=== PATIENT | female | born 1960 | race Caucasian/White ===

== ENCOUNTER 2017-06-16 22:21 | Emergency (ER) | payer MEDICARE, OTHER ==
[2017-06-16 23:08] LABS: Hematocrit 37.1 % (36.0-47.0); Mean Platelet Volume 10.4 fL (7.4-10.4); Red Blood Cell (RBC) Count 3.51 mill/uL (4.20-5.40); White Blood Cell (WBC) Count 5.3 thou/uL (4.8-10.8)
[2017-06-16 23:26] LABS: Troponin I 0.011 ng/mL (< 0.028)
[2017-06-16 23:32] LABS: Band 1 % (5-11); Basophilic Stippling SLIGHT = 1-2 cells (100X) (None Seen); Macrocytosis SLIGHT = 6-15 cells (100X) (0-5/hpf); Neutrophil 49 % (42-75)
[2017-06-16 23:52] LABS: ALT (SGPT) 7 U/L (8-55); AST (SGOT) 9 U/L (5-34); Alkaline Phosphatase 116 U/L (40-150); Anion Gap 15 mmol/L (10-20); BUN (Urea Nitrogen) 23 mg/dL (9.8-20.1); Bilirubin, Total 0.6 mg/dL (0.2-1.2); CK (CPK) 27 U/L (29-168); Calc. Creatinine Clearance 0 mL/min (70-130); Carbon Dioxide 27 mmol/L (22-29); Chloride 90 mmol/L (98-107); Estimated GFR-MDRD 11; Globulin 3.6 g/dL (2.4-3.5); Lipase Less than 4 U/L (8-78); Protein, Total 7.6 g/dL (6.0-8.3)
--- NOTE | 2017-06-16 23:57 | RAD ---
PORTABLE AP CHEST X-RAY 06/16/17 HISTORY: Mid sternal chest pain that began at 1800 hours and resolved with nitroglycerin. Pain returned again at 2100 hours. COMPARISON: 06/08/17. Tunneled right internal jugular vein hemodialysis catheter and single lead left subclavian AICD cornel ce remain in place. Cardiac silhouette is enlarged. There is increased interstitial opacities bilate rally, which may be related to pulmonary edema or infectious process. There is subsegmental atelecta sis seen in the mid lung zones bilaterally. A tiny left pleural effusion cannot be entirely excluded . Pulmonary vasculature is mildly increased. IMPRESSION: Cardiomegaly with findings suggestive of mild CHF and pulmonary edema. POS: [facility]
[2017-06-17] MEDS ORDERED: Furosemide 20 MG/2 ML VIAL ONE (01:03)
[2017-06-17 01:22] LABS: Troponin I 0.019 ng/mL (< 0.028)
== END 2017-06-17 04:01 | disposition home or self-care (01) ==
LOC: ERS 22:21
DX: I50.9 Heart failure, unspecified (principal); E11.22 Type 2 diabetes mellitus with diabetic chronic kidney disease; E78.5 Hyperlipidemia, unspecified; N18.6 End stage renal disease; I48.91 Unspecified atrial fibrillation; Z87.891 Personal history of nicotine dependence; Z79.82 Long term (current) use of aspirin; Z79.4 Long term (current) use of insulin; Z79.891 Long term (current) use of opiate analgesic; Z79.899 Other long term (current) drug therapy
CPT/HCPCS: 36415; 71010; 80053; 82550; 82553; 83690; 83880; 84484; 85025; 93005; 94760; 96374; J1940

== ENCOUNTER 2017-08-16 09:45 | Inpatient (IN) | payer MEDICARE, OTHER ==
[2017-08-16 10:21] LABS: Anion Gap 1 mmol/L (-14-95); Critical Call POC Critical Value; Lactate 0.63 mmol/L (0.50-2.20); POC Est. GFR-MDRD-African-Amer 7; POC Estimated GFR-MDRD 6; T. Carbon Dioxide 32.6 mmol/L (1.0-85.0); pH (Venous) 7.169 (7.35-7.45)
[2017-08-16 10:23] LABS: Oxyhemoglobin 91.3 % (94.0-97.0); Sodium 129 mmol/L (135-148)
[2017-08-16 10:25] LABS: Modified Allen's Test POSITIVE; Vent NO
[2017-08-16 10:26] LABS: Mode 3L NC
[2017-08-16 10:46] LABS: #Basophils 0.1 thou/uL (0.0-0.2); #Eosinphils 0.1 thou/uL (0.0-0.7); #Lymphocytes 0.5 thou/uL (1.20-3.40); #Monocytes 0.6 thou/uL (0.11-0.59); %Basophils 0.7 % (0.0-1.0); %Eosinophils 0.7 % (0.0-10.0); %Lymphocytes 5.9 % (21.0-51.0); %Monocytes 7.3 % (0.0-10.0); Hematocrit 38.6 % (36.0-47.0); Mean Platelet Volume 9.8 fL (7.4-10.4); Red Blood Cell (RBC) Count 3.52 mill/uL (4.20-5.40); White Blood Cell (WBC) Count 8.2 thou/uL (4.8-10.8)
[2017-08-16] MEDS ORDERED: Calcium Chloride 1 GM/10 ML Abboject SYRINGE ONE (10:47)
[2017-08-16] MEDS ORDERED: Dextrose 50% Abboject 50 ML SYRINGE ONE (10:47)
[2017-08-16] MEDS ORDERED: Sodium Bicarb 50 MEQ/50 ML Abboject 8.4% SYRINGE ONE (10:47)
[2017-08-16] MEDS ORDERED: Insulin Regular 300 UNITS/3 ML VIAL ONE (10:48)
[2017-08-16 10:53] LABS: Troponin I Less than 0.010 ng/mL (< 0.028)
--- NOTE | 2017-08-16 10:53 | RAD ---
PORTABLE CHEST: History: Dyspnea. Comparison: 08-04-17 FINDINGS/IMPRESSION: Cardiomegaly with vascular congestion. There is evidence of interstitial edema. There is abnormal den sity in the right suprahilar region today which may be positional. Suggest short term follow up. Upri ght PA and lateral views would be helpful if patient can tolerate. POS: [facility]
[2017-08-16 11:02] LABS: Anisocytosis SLIGHT = 6-15 cells (100X) (0-5/hpf); Blister Cells SLIGHT = 2-5 cells (100X) (0-1/hpf); Macrocytosis SLIGHT = 6-15 cells (100X) (0-5/hpf); Polychromasia MODERATE = 3-4 cells (100X) (0-2/hpf)
[2017-08-16 11:47] LABS: Oxyhemoglobin 91.8 % (94.0-97.0); Sodium 130 mmol/L (135-148)
[2017-08-16 11:49] LABS: Modified Allen's Test POSITIVE; Vent NO
[2017-08-16] MEDS ORDERED: Rocuronium Bromide 50 MG/5 ML VIAL ONE (12:03)
[2017-08-16] MEDS ORDERED: Propofol 1,000 MG/100 ML VIAL IV ONE (12:19)
[2017-08-16 12:53] LABS: Chloride 93 mmol/L (98-107)
[2017-08-16 12:54] LABS: Calcium 9.2 mg/dL (7.8-10.44)
[2017-08-16 12:56] LABS: Anion Gap 17 mmol/L (10-20); Carbon Dioxide 22 mmol/L (22-29)
[2017-08-16 12:57] LABS: Calc. Creatinine Clearance 0 mL/min (70-130); Estimated GFR-MDRD 7
[2017-08-16 12:58] LABS: BUN (Urea Nitrogen) 59 mg/dL (9.8-20.1)
[2017-08-16] MEDS ORDERED: cloNIDine 0.1 MG TAB PO PRN ×2 (13:15→17:39)
[2017-08-16] MEDS ORDERED: Acetaminophen 325 MG TAB PO PRN (13:15)
[2017-08-16] MEDS ORDERED: Sedation Protocol FS ONE (13:15)
[2017-08-16] MEDS ORDERED: hydrALAZINE 20 MG/ML VIAL SLOW IVP PRN (13:15)
[2017-08-16] MEDS ORDERED: Nitroglycerin 0.4 MG TAB (25 Tab Bottle) PO PRN (13:15)
[2017-08-16] MEDS ORDERED: Acetaminophen 650 MG Suppository PR PRN (13:15)
[2017-08-16] MEDS ORDERED: Insulin Regular 300 UNITS/3 ML VIAL SC PRN (13:15)
[2017-08-16] MEDS ORDERED: Senokot 8.6 MG TAB PO PRN (13:15)
[2017-08-16] MEDS ORDERED: Calcium Carbonate 500 MG ChewTAB PO PRN (13:15)
[2017-08-16] MEDS ORDERED: Dextrose 5% in Water 1,000 ML IV PRN (13:15)
[2017-08-16] MEDS ORDERED: Dextrose 50% Abboject 50 ML SYRINGE SLOW IVP PRN (13:15)
[2017-08-16] MEDS ORDERED: Ondansetron ODT 4 MG TAB PO PRN (13:15)
[2017-08-16] MEDS ORDERED: Ondansetron HCl/PF 4 MG/2 ML Vial IVP PRN (13:15)
[2017-08-16] MEDS ORDERED: Lorazepam 2 MG/ML VIAL SLOW IVP PRN (13:25)
[2017-08-16] MEDS ORDERED: Propofol 1,000 MG/100 ML VIAL IV PRN (13:25)
[2017-08-16] MEDS ORDERED: Fentanyl 20 MCG/ML 250 ML IVPB SCH (13:25)
--- NOTE | 2017-08-16 13:26 | RAD ---
PORTABLE AP CHEST: Date: 08-16-17 History: Intubated. Comparison: 08-16-17 FINDINGS: Single led left subclavian AICD device remains in place. Nasogastric tube is noted in place with cour ses into the left upper caudate, the tip of which is not visualized. Endotracheal tube is noted in pl kel with the tip overlying T4-5 level and above the level of the trisha. Cardiac silhouette remains e nlarged. Pulmonary vasculature does appear mildly increased. There is minimal linear scarring versus atelectasis in the mid lung zones bilaterally. No pleural effusion is seen. No other interval change. IMPRESSION: 1. Cardiomegaly with mild pulmonary vascular congestion. Correlation for mild CHF is recommended. 2. Endotracheal tube noted in place above the level of the trisha. The nasogastric tube is also noted in place, the tip is not imaged. POS: [facility]
[2017-08-16] MEDS ORDERED: Morphine PF 1 MG/ML SYR IVP PRN (13:30)
[2017-08-16 13:38] VITALS: BMI 37.0
[2017-08-16] MEDS ORDERED: Labetalol HCl 100 MG/20 ML VIAL SLOW IVP PRN (15:03)
--- NOTE | 2017-08-16 15:48 | PRG ---
DATE OF SERVICE: 08/16/2017 SERVICE: Pulmonary Medicine. REASON FOR CONSULTATION: Respiratory failure. HISTORY OF PRESENT ILLNESS: The patient is a 57-year-old female. He has got multiple comor bidities associated with advanced type 2 diabetes mellitus. She has end-stage renal disease. She merritt s been in and out of hospital recently because she is refusing her dialysis. That being said, in her time of need, she has increasing respiratory distress or failure or chest discomfort and was brought to the emergency department. On this occasion, in the Emergency Department, she was in hypoxic resp iratory failure and little obtunded. ABG demonstrated respiratory acidosis. She was placed on BiPAP , but failed this and subsequently was intubated. She was stuck in the ICU. She cannot provide any additional elements of the history. Currently, she is not requiring any sedation and she is not foll owing any commands. PAST MEDICAL HISTORY: 1. End-stage renal disease, on hemodialysis, noncompliant. 2. Multiple admissions secondary to volume overload. 3. Chronic hypoxic respiratory failure. 4. COPD, possible. 5. Morbid obesity. 6. Obesity hypoventilation syndrome. 7. Obstructive sleep apnea. 8. Type 2 diabetes mellitus. 9. Chronic systolic and diastolic heart failure. 10. Paroxysmal atrial fibrillation. 11. Anemia of chronic kidney disease. 12. Hypothyroidism. 13. Hypertension. 14. Dyslipidemia. 15. Gastroesophageal reflux disease. 16. History of CVA with residual left-sided weakness. 17. Seizure disorder. PAST SURGICAL HISTORY: 1. AICD/pacemaker placement. 2. AV fistula, nonfunctioning. 3. Tunneled hemodialysis catheter in the right IJ. 4. Tonsillectomy. 5. Hysterectomy. 6. Colonoscopy with polypectomy. 6. Hernia repair. ALLERGIES: No known drug allergies. MEDICATIONS: List of her inpatient medications were reviewed. No specific updates were made at this time. FAMILY HISTORY: Noncontributory. SOCIAL HISTORY: The patient is . She lives in of [facility] as a long- term resident. She denies any alcohol, tobacco or illicit drug use. REVIEW OF SYSTEMS: Cannot be obtained as the patient is currently intubated and encephalopathic. PHYSICAL EXAMINATION: VITAL SIGNS: Afebrile, pulse 73, blood pressure 215/85, respirations 71, saturation 99% on 21% FiO2 and a PEEP of 5. HEENT: Normocephalic, atraumatic. Sclerae are white, conjunctivae pink. Oral mucosa is moist witho ut lesions. LUNGS: Decent air entry. Crackles are present dependently. HEART: Normal rate, regular. ABDOMEN: Soft, nontender, nondistended. Bowel sounds positive. MUSCULOSKELETAL: No cyanosis or clubbing. There is diffuse pitting, which is roughly 2+ throughout including bilateral upper and lower extremities. GENITOURINARY: No Begum. NEUROLOGIC: Grossly nonfocal. LABORATORY DATA: WBC 8.2, hemoglobin 12.3, platelets 183,000. INR 1.1. PH 7.16, pCO2 91, pO2 96. Potassium 6.7, which is improved to 5.7 after dialysis. Sodium 126. Creatinine 6.29 and gently down trending, BUN 59. Cardiac enzymes x1 is negative. CK falls within normal limits. Recent urine cult ure grew Klebsiella which was pansensitive. IMAGING: Chest x-ray demonstrates prominence of the interstitium, prominence of the pulmonary vascul ature. There is widening to the trisha angle. Some B lines are present. There is likely some fluid in the fissure of the lung. Otherwise, there is no obvious lobar consolidating pattern present. En dotracheal tube is in good position and terminates roughly 2-3 cm above the trisha. Catheter pacemak ers identified. Enteric catheter actually courses below the level of the diaphragm. ASSESSMENT: 1. Acute hypoxic and hypercapnic respiratory failure. 2. Metabolic encephalopathy. 3. End-stage renal disease, demonstrating noncompliance with therapy. PLAN: The patient is already on dialysis. Palliative Care consultation will be placed. Now, she is on mechanical ventilation, repeat ABG will be performed to make certain that her acidosis is improvi ng slightly. We will give the patient time we monitor for evidence of end organ damage associated wi th her elevated blood pressure. Certainly, if she fails to wake up over the next 24-48 hours, imagin g of the brain will be considered. I will focus on getting good control of her blood pressure. If s he meets criteria after dialysis and she is awake and alert and cooperative, extubation will be consi dered. Pulmonary Critical Care will continue to follow for the time being. Critical care time: 30 minutes.
[2017-08-16] MEDS ORDERED: Nitroglycerin 0.4 MG TAB (25 Tab Bottle) SL PRN (17:32)
--- NOTE | 2017-08-16 18:16 | HP ---
DATE OF ADMISSION: 08/16/2017 PRIMARY CARE PHYSICIAN: Simona Barnard D.O. at [facility]. CODE STATUS: FULL CODE. SURROGATE DECISION MAKER: To be confirmed with the family. There is no family at the bedside. CHIEF COMPLAINT: Shortness of breath and low oxygen saturation. HISTORY OF PRESENT ILLNESS: The patient is a 57-year-old female, currently residing at [facility], was brought in to the hospital with shortness of breath. The patient h as a long history of end-stage renal disease on hemodialysis and noncompliance. Patient has been con sistently refusing dialysis. This morning, the patient was found to have shortness of breath along w ith low oxygen saturation. She follows Dr. Jacobson normally. She was placed on oxygen and was brought t o the emergency room. At this time, the patient is intubated on mechanical ventilation. No history obtained from the patie nt due to this reason. She was initially placed on noninvasive positive pressure ventilation without much success. Initial vital signs on ER arrival showed a pulse rate of 94, respirations 17, blood p ressure of 143/78 with O2 saturation of 100% on noninvasive positive pressure ventilation. Initial b lood gases showed pH of 7.15 with pCO2 88.4, pO2 of 92.2, bicarbonate of 30.2. Initial potassium was 6.7 with creatinine 6.29 with BUN 59. She received insulin D50, sodium bicarbonate and calcium chlo ride in the emergency room. Chest x-ray showed pulmonary vascular congestion. EKG showed sinus rhyt hm with first degree AV blocks with nonspecific ST-T wave changes. She is currently undergoing emerg ent hemodialysis. PAST MEDICAL HISTORY: 1. End-stage renal disease on hemodialysis and noncompliance. 2. Multiple hospitalizations for acute hypoxic respiratory failure secondary to volume overload from missed hemodialysis. 3. Chronic hypoxic respiratory failure. 4. Chronic obstructive pulmonary disease. 5. Morbid obesity. 6. Obstructive sleep apnea/hypoventilation syndrome. 7. Diabetes mellitus type 2. 8. Chronic right knee ulcer. 9. Chronic diastolic heart failure with last ejection fraction around 45% range. 10. Paroxysmal atrial fibrillation, not a candidate for anticoagulation per previous notes. 11. Chronic anemia. 12. Hypothyroidism. 13. Hypertension. 14. Dyslipidemia. 15. Gastroesophageal reflux disease. 16. History of cerebrovascular accident with residual left-sided weakness. 17. Seizure disorder. PAST SURGICAL HISTORY: 1. AICD/pacemaker placement. 2. Dialysis access. 3. Tonsillectomy. 4. Hysterectomy. 5. Colonoscopy with polypectomy. 6. Hernia repair. ALLERGIES: No known drug allergies. CURRENT MEDICATIONS: At the [facility] to be verified with the nursing facility. We will try to c ontact the fpc for accurate [facility] medication list. FAMILY HISTORY: Positive for hypertension, diabetes and coronary artery disease in several family me mbers per previous record. SOCIAL HISTORY: As discussed above. No current use of tobacco, alcohol or drug use. REVIEW OF SYSTEMS: Cannot be obtained from the patient due to current cognitive status. PHYSICAL EXAMINATION: VITAL SIGNS: As discussed above. GENERAL: A 57-year-old female, intubated and sedated on mechanical ventilation. HEENT: Head atraumatic, normocephalic. Sclerae are anicteric. Moist mucous membrane. No oral lesi on. NECK: Supple. Neck veins somewhat distended. No carotid bruit. LUNGS: Showed bibasilar crackles with scattered rhonchi and wheezing. Endotracheal tube noted. HEART: S1, S2 present. Regular rate and rhythm. No rubs, gallops or heaves. ABDOMEN: Soft. Bowel sounds present. No rebound or guarding. EXTREMITIES: There is 2+ edema in bilateral lower extremities with generalized anasarca. SKIN: Warm and dry. LYMPH NODES: No palpable lymph nodes in the neck. NEUROLOGIC AND PSYCHIATRY: Examination could not be assessed due to current cognitive status. LABORATORY FINDINGS: As discussed above. Blood gases as discussed above. Sodium was 127. Troponin s were negative. Chest x-ray and EKG by my review as discussed above. IMPRESSION: 1. Acute hypoxic and hypercapnic respiratory failure secondary to missed hemodialysis/volume overloa d. 2. Chronic respiratory failure on home oxygen. 3. End-stage renal disease on hemodialysis with noncompliance. 4. Chronic obstructive pulmonary disease. 5. Obesity with a BMI at 37.1. 6. Obstructive sleep apnea/hypoventilation syndrome. 7. Chronic diastolic heart failure. 8. Paroxysmal atrial fibrillation, not an anticoagulation candidate, currently in sinus rhythm. 9. Chronic anemia secondary to renal insufficiency. 10. Hypothyroidism. 11. Hypertension. 12. Dyslipidemia. 13. Gastroesophageal reflux disease. 14. History of cerebrovascular accident with left-sided weakness. 15. Seizure disorder. PLAN: The patient is currently intubated and sedated on mechanical ventilation. She is currently re ceiving emergent hemodialysis. Critical Care will be consulted. We will resume home medications onc e confirmed. P.r.n. antihypertensives will be started. We will consult palliative care team due to repeated noncompliance with hemodialysis. We will try to contact the family. We will add nitropatch . Ventilation sedation protocol. We discussed the plan of care with the family when they arrive.
[2017-08-16 19:22] LABS: Oxyhemoglobin 38.6 % (94.0-97.0); Sodium 138 mmol/L (135-148)
[2017-08-16 19:40] LABS: Mechanical Tidal Volume 430 ml; Mode SIMV; Vent YES
[2017-08-16] MEDS: Nitroglycerin 2% Ointment 1 INCH/1 GM Packet TOP SCH (19:40)
[2017-08-16] MEDS: Heparin 5,000 UNITS/ML VIAL SC SCH (20:25)
[2017-08-16] MEDS: hydrALAZINE 25 MG TAB PER TUBE SCH (20:26)
[2017-08-16] MEDS: Docusate 100 MG CAP PO SCH (20:26)
[2017-08-16] MEDS: cloNIDine 0.1 MG TAB PER TUBE SCH (20:27)
[2017-08-16] MEDS: Carvedilol 3.125 MG TAB PER TUBE SCH (20:27)
[2017-08-16] MEDS ORDERED: FLU VACC QS2017-18 36 mo. & older 0.5 ML SYRINGE IM ONE (21:00)
[2017-08-16] MEDS ORDERED: Famotidine/PF 20 mg/2ml Vial SLOW IVP SCH (21:00)
--- NOTE | 2017-08-16 23:04 | CON ---
DATE OF CONSULTATION: 08/16/2017 HISTORY OF PRESENT ILLNESS: Ms. Felder is a 57-year-old white female with known history of ESRD - - currently on maintenance hemodialysis and admitted for acute respiratory failure with concomitant h yperkalemia. She is currently undergoing hemodialysis at the bedside supervising her dialysis. I am attempting 3-4 liter fluid removal as tolerated by the patient. We initially used a 1-0 potassium b ath in the first hour and then converted to a 2-0 potassium bath. She is currently intubated and sed ated and on ventilator support. REVIEW OF SYSTEMS: Positive for mental status change. Positive for mild shortness of breath. No na usea, no vomiting, no chest pain, no syncopal episode, no productive cough, no fever or chills, no di arrhea or constipation. MEDICATIONS: Medications of 08/16/2017 was reviewed. She is currently on Pepcid 20 mg IV daily, hep farzana 5000 units subcutaneously b.i.d., Humulin R sliding scale. She is on Zofran 4 mg q.6 h. p.r.n. She is on Diprivan drip. PAST MEDICAL HISTORY: Includes the following, 1. History of noncompliance. 2. End-stage renal disease from hypertensive/diabetic nephropathy. 3. Type 2 diabetes mellitus. 4. Status post CHF - EF 40-45%. 5. Hyperlipidemia. 6. Hypothyroidism. 7. Status post CVA. 8. ? of seizure disorder. 9. COPD. 10. GERD. PAST SURGICAL HISTORY: 1. Status post AV fistula placement. 2. Status post cardiac catheterization. 3. Status post pacemaker/AICD placement. 4. Status post cuffed hemodialysis catheter placement. 5. Status post hysterectomy. 6. Status post colonoscopy. 7. Status post cholecystectomy. 8. Status post hernia repair. SOCIAL HISTORY: Patient is in [facility] currently. The patient is , 7 children. No smoki ng, no alcohol, no drug abuse. Status post blood transfusions. Sedentary lifestyle. Originally [facility]. FAMILY HISTORY: No family history of ESRD. ALLERGIES: None. TRAUMA: None. IMMUNIZATIONS: Up to date. HOSPITALIZATIONS: Please see past medical history. PHYSICAL EXAMINATION: VITAL SIGNS: Blood pressure 150/70, heart rate 70, pulse ox 95%. GENERAL: The patient is sedated and intubated on ventilator support. SKIN: Adequate turgor. HEENT: Slightly pale conjunctivae, anicteric sclerae. NECK: No neck mass, no carotid bruits, no JVD. CHEST: No deformities. LUNGS: Decreased breath sounds. HEART: Normal sinus rhythm. No murmur, no gallops or rubs. ABDOMEN: Globular, soft, nontender, no masses. EXTREMITIES: Positive for edema. NEUROLOGIC: Sedated and intubated on ventilator support. LABORATORY: Laboratories of 08/16/2017, white count 8.2, hemoglobin 12.3. Sodium 126, potassium 5.7 , chloride 93, carbon dioxide 22, BUN 59, creatinine 6.29, glucose 148, uric acid 9, calcium is 9.2. CK is 56. The patient's chest x-ray of 08/16/2017 shows CHF. ASSESSMENT AND PLAN: 1. Acute respiratory failure -- multifactorial. Consider chronic obstructive pulmonary disease exac erbation as well as congestive heart failure. Patient missed her dialysis treatment. She does have history of noncompliance. 2. End-stage renal disease -- due to the hyperkalemia and congestive heart failure, she is undergoin g emergent hemodialysis. My plan is for her to undergo a dialysis treatment and place her on a , , and Tuesday dialysis regimen. Fluid removal as tolerated - attempting between 3 and 4 liters of fluid removal. So far the patient is tolerating the said treatment. I have discussed the case at length with the dialysis nurse. 3. Anemia -- hemoglobin is noted to be minimal, no indication for any Epogen. Overall, I agree with current management. Continue supportive care.
[2017-08-17] MEDS: Nitroglycerin 2% Ointment 1 INCH/1 GM Packet TOP SCH ×2 (01:33→11:30)
[2017-08-17 04:26] LABS: Anion Gap 13 mmol/L (10-20); BUN (Urea Nitrogen) 28 mg/dL (9.8-20.1); BUN/Creatinine Ratio 7.04; Calc. Creatinine Clearance 22 mL/min (70-130); Calcium 8.8 mg/dL (7.8-10.44); Carbon Dioxide 29 mmol/L (22-29); Chloride 97 mmol/L (98-107); Estimated GFR-MDRD 12
[2017-08-17 04:36] LABS: Phosphorus 1.5 mg/dL (2.3-4.7)
[2017-08-17] MEDS: Levothyroxine Sodium 100 MCG TAB PER TUBE SCH (05:22)
[2017-08-17 05:43] LABS: Band 12 % (5-11); Hematocrit 35.4 % (36.0-47.0); Neutrophil 66 % (42-75); Red Blood Cell (RBC) Count 3.33 mill/uL (4.20-5.40); White Blood Cell (WBC) Count 5.9 thou/uL (4.8-10.8)
[2017-08-17] MEDS ORDERED: Aspirin 325 MG TAB PO SCH (09:00)
--- NOTE | 2017-08-17 09:20 | PRG ---
DATE OF SERVICE: 08/17/2017 SERVICE: Renal Medicine. SUBJECTIVE: Ms. Felder is a 57-year-old female with end-stage renal disease and admitted for congestive heart failure. She was noted to have acute respiratory failure. She was intubated. She underwent a 4-hour hemodialysis yesterday with 4 liter of fluid removal. This morning, she is f eeling better. The plan is to extubate her. OBJECTIVE: VITAL SIGNS: Blood pressure is 119/70, heart rate 83, O2 sats 96%. GENERAL: Awake, intubated, comfortable, not in distress. SKIN: Adequate turgor. HEENT: Pinkish conjunctivae, anicteric sclerae. NECK: No neck mass, no carotid bruits, no JVD. CHEST: No deformities. LUNGS: Decreased breath sounds. HEART: Normal sinus rhythm. No murmur, no gallops, no rubs. ABDOMEN: Globular, soft, nontender, no masses. EXTREMITIES: Trace edema. MEDICATIONS: Of 08/17/2017 was reviewed. LABORATORY DATA: Of 08/17/2017, white count 5.9, hemoglobin 11.4, sodium 135, potassium 3.7, chlorid e 97, carbon dioxide 29, BUN 28, creatinine 3.98, glucose is 100, calcium is 8.8, phosphorus is 1.5. ASSESSMENT AND PLAN: 1. Congestive heart failure - clinically improved. We will plan extubation. Four liters of fluid w as removed with dialysis yesterday. 2. End-stage renal disease, stable. We will plan to do another hemodialysis regimen in a.m. I will continue the Tuesday, , and Tuesday dialysis temporarily with this patient. 3. Noncompliance - this patient has been counseled several times in the past regarding compliance wi th her dialysis regimen. Overall, prognosis remains guarded.
[2017-08-17] MEDS: hydrALAZINE 25 MG TAB PER TUBE SCH ×3 (11:29→20:59)
[2017-08-17] MEDS: Carvedilol 3.125 MG TAB PER TUBE SCH ×2 (11:30→21:00)
[2017-08-17] MEDS: Docusate 100 MG CAP PO SCH ×2 (11:30→20:59)
[2017-08-17] MEDS: Gabapentin 300 MG CAP PO SCH (11:30)
[2017-08-17] MEDS: Heparin 5,000 UNITS/ML VIAL SC SCH ×2 (11:31→20:57)
[2017-08-17] MEDS: cloNIDine 0.1 MG TAB PER TUBE SCH ×2 (11:38→21:00)
[2017-08-17] MEDS: Insulin Regular 300 UNITS/3 ML VIAL SC PRN ×2 (13:37→18:06)
--- NOTE | 2017-08-17 15:06 | PRG ---
DATE OF SERVICE: 08/17/2017 SERVICE: Pulmonary Medicine. INTERVAL HISTORY: The patient did well overnight. Shortly after dialysis, the patient basically wok e up yesterday. She is currently comfortable and denies any current shortness of breath or chest dis comfort. She is continuing on mechanical ventilation. We are going to minimize settings and see if she can tolerate a spontaneous breathing trial. PHYSICAL EXAMINATION: VITAL SIGNS: Afebrile, pulse 75, blood pressure 143/65, respirations 20 and saturation 95% on 3 lite rs nasal cannula. GENERAL: The patient is awake and alert in no apparent distress. LUNGS: Decent air entry. Dependent crackles are present, but there is no prolonged expiratory phase , wheezing or rhonchi. HEART: Normal rate and regular. ABDOMEN: Soft, nontender and nondistended. Bowel sounds are positive. MUSCULOSKELETAL: No cyanosis or clubbing. There is diffuse pitting throughout, which is improved. GENITOURINARY: No Begum. NEUROLOGIC: Grossly nonfocal. LABORATORY DATA: WBC 5.9, hemoglobin 11.4 and platelets 140,000. PH of 7.48, pCO2 of 42 and pO2 is 19.5, but this certainly represents a VBG. Creatinine 3.98. Basic metabolic profile is otherwise un remarkable. Potassium has improved to 3.7. Phosphorus is 1.5. ASSESSMENT: 1. Acute hypoxic respiratory failure. 2. Metabolic encephalopathy, resolving. 3. End-stage renal disease with severe noncompliance with dialysis. PLAN: The patient will continue on her spontaneous breathing trial. If she meets criteria, extubati on will be considered. If she breathes comfortably for an additional 24-48 hours and demonstrates de cent strength and mentation, she can be considered for transition to the floor. I will continue to deloris sarmiento while she remains in this location. CRITICAL CARE TIME: 30 minutes.
--- NOTE | 2017-08-17 18:43 | PDOC.PN ---
- Subjective Encounter Start Date: 08/17/17 Encounter Start Time: 16:30 Patient seen and examined. Some SOB on exertion. No CP/palpitations. No overnight events. Extubated. - Objective Resuscitation Status: Resuscitation Status FULL:Full Resuscitation MAR Reviewed: Yes Vital Signs & Weight: Vital Signs (12 hours) Temp Pulse Resp BP BP Pulse Ox 08/17/17 18:14 73 16 85 L 08/17/17 17:11 96.7 F L 71 21 H 165/79 H 96 08/17/17 16:00 98.0 F 08/17/17 15:47 75 139/68 08/17/17 13:01 75 20 95 08/17/17 12:00 98.8 F 08/17/17 11:38 184/105 H 08/17/17 11:30 184/105 H 08/17/17 11:29 80 08/17/17 09:56 95 08/17/17 09:05 99.9 F H 83 16 94 L 08/17/17 09:00 83 142/74 H 08/17/17 08:00 99.9 F H 08/17/17 07:32 83 119/70 96 Weight Weight 202 lb 1.6 oz Most Recent Monitor Data Heart Rate from ECG 72 NIBP 152/75 NIBP BP-Mean 89 Respiration from ECG 16 SpO2 100 I&O: 08/16/17 08/17/17 08/18/17 06:59 06:59 06:59 Intake Total 96.6 700 Output Total 1150 500 Balance -1053.4 200 Result Diagrams: 08/17/17 03:33 08/17/17 03:33 Additional Labs: Accuchecks 08/17/17 08/17/17 08/16/17 17:46 12:38 23:38 POC Glucose 162 H 176 H 112 H 08/16/17 08/16/17 20:35 11:40 POC Glucose 95 192 H EKG Reviewed by me: Yes (Tele SR) Phys Exam - Physical Examination Constitutional: NAD Respiratory: no wheezing, no rhonchi Scat rales at bases/Symmetrical Cardiovascular: RRR, no rub no heaves/pulsations Gastrointestinal: soft, non-tender, no distention, positive bowel sounds Musculoskeletal: edema present Neurological: moves all 4 limbs Psychiatric: normal affect, A&O x 3 Dx/Plan - Plan DVT proph w/heparin, DVT proph w/SCDs IMPRESSION: 1. Acute hypoxic and hypercapnic respiratory failure secondary to missed hemodialysis/volume overload[facility] 2. Chronic respiratory failure on home oxygen. 3. End-stage renal disease on hemodialysis with noncompliance. 4. Chronic obstructive pulmonary disease. - on nebs 5. Obesity with a BMI at 37.1. 6. Obstructive sleep apnea/hypoventilation syndrome. 7. Chronic diastolic heart failure. 8. Paroxysmal atrial fibrillation, not an anticoagulation candidate, currently in sinus rhythm. 9. Chronic anemia secondary to renal insufficiency. 10. Hypothyroidism. 11. Hypertension. 12. Dyslipidemia. 13. Gastroesophageal reflux disease. 14. History of cerebrovascular accident with left-sided weakness. 15. Seizure disorder. PLAN: * Transfer to medical * Cont to monitor * Nephro/Critical care following * Counselled extensively on med compliance * Cont to monitor * Cont current meds as below Review of Systems - Review of Systems Constitutional: negative: Fever, Chills, Sweats, Weakness, Malaise Cardiovascular: negative: Chest Pain, Palpitations, Orthopnea, Paroxysmal Noc. Dyspnea, Edema, Light Headedness Gastrointestinal: negative: Nausea, Vomiting, Abdominal Pain, Diarrhea, Constipation, Melena, Hematochezia, Other - Medications/Allergies Allergies/Adverse Reactions: Allergies Allergy/AdvReac Type Severity Reaction Status Date / Time No Known Allergies Allergy Verified 02/25/17 04:54 Medications: Current Medications Acetaminophen (Tylenol) 650 mg PO Q4H PRN PRN Reason: Headache/Fever or Pain Acetaminophen (Tylenol) 650 mg ME Q4H PRN PRN Reason: Headache/Fever or Pain Albuterol/Ipratropium (Duoneb) 3 ml NEB [id number] [facility] Last Admin: 08/17/17 18:14 Dose: 3 ml Amiodarone HCl (Cordarone) 200 mg PER TUBE DAILY [facility] Last Admin: 08/17/17 11:30 Dose: 200 mg Aspirin (Aspirin Chewable) 81 mg PER TUBE DAILY [facility] Last Admin: 08/17/17 11:30 Dose: 81 mg Calcium Carbonate (Tums) 1,000 mg PO Q4H PRN PRN Reason: Heartburn or Indigestion Carvedilol (Coreg) 3.125 mg PER TUBE BID [facility] Last Admin: 08/17/17 11:30 Dose: 3.125 mg Clonidine (Catapres) 0.1 mg PER TUBE BID [facility] Last Admin: 08/17/17 11:38 Dose: Not Given Clonidine (Catapres) 0.1 mg PO Q4H PRN PRN Reason: Systolic BP > 180/ DBP >100 Last Admin: 08/17/17 11:30 Dose: 0.1 mg Dextrose/Water (Dextrose 50%) 25 gm SLOW IVP PRN PRN PRN Reason: Hypoglycemia Docusate Sodium (Colace) 100 mg PO BID [facility] Last Admin: 08/17/17 11:30 Dose: 100 mg Gabapentin (Neurontin) 300 mg PO DAILY [facility] Last Admin: 08/17/17 11:30 Dose: 300 mg Glucagon (Glucagon) 1 mg IM PRN PRN PRN Reason: Hypoglycemia Heparin Sodium (Porcine) (Heparin) 5,000 units SC BID [facility] Last Admin: 08/17/17 11:31 Dose: 5,000 units Hydralazine HCl (Apresoline) 20 mg SLOW IVP Q30MIN PRN PRN Reason: SBP Greater Than 180 Hydralazine HCl (Apresoline) 25 mg PER TUBE TID [facility] Last Admin: 08/17/17 15:47 Dose: 25 mg Dextrose/Water (D5w) 1,000 mls @ 0 mls/hr IV .Q0M PRN; As Directed PRN Reason: Hypoglycemia Insulin Human Regular (Humulin R) 0 units SC .MILD SLIDING SCALE PRN PRN Reason: Mild Correctional Scale Last Admin: 08/17/17 18:06 Dose: 2 units Insulin Human Regular (Humulin R) 0 units SC .BEDTIME SLIDING SC PRN PRN Reason: Bedtime Correctional Scale Labetalol HCl (Normodyne) 20 mg SLOW IVP Q30MIN PRN PRN Reason: SBP Greater Than 180 Levothyroxine Sodium (Synthroid) 100 mcg PER TUBE 0600 [facility] Last Admin: 08/17/17 05:22 Dose: 100 mcg Miscellaneous Medication (Phos-Nak) 2 pkt PER TUBE TID [facility] Last Admin: 08/17/17 15:47 Dose: 2 pkt Nitroglycerin (Nitrostat) 0.4 mg PO Q5MIN PRN PRN Reason: Chest Pain Ondansetron HCl (Zofran Odt) 4 mg PO Q6H PRN PRN Reason: Nausea/Vomiting Ondansetron HCl (Zofran) 4 mg IVP Q6H PRN PRN Reason: Nausea/Vomiting Senna (Senokot) 2 tab PO HSPRN PRN PRN Reason: Constipation Sertraline HCl (Zoloft) 150 mg PER TUBE HS [facility] Last Admin: 08/16/17 20:26 Dose: 150 mg Sodium Chloride (Flush - Normal Saline) 10 ml IVF PRN PRN PRN Reason: Saline Flush
[2017-08-17] MEDS ORDERED: Melatonin 3 MG TAB PO PRN (19:25)
[2017-08-17] MEDS: hydrALAZINE 20 MG/ML VIAL SLOW IVP PRN (23:23)
[2017-08-18] MEDS: Levothyroxine Sodium 100 MCG TAB PER TUBE SCH (06:09)
--- NOTE | 2017-08-18 08:52 | PRG ---
DATE OF SERVICE: 08/18/2017. SUBJECTIVE: Ms. Felder is a 57-year-old white female with ESRD and admitted for acute respiratory failure from congestive heart failure. She underwent hemodialysis. She is doing better. She is ex tubated. I am at the bedside supervising her dialysis today. She is tolerating the said treatment. She voices no new complaints. She wanted to go home. PHYSICAL EXAMINATION: VITAL SIGNS: Blood pressure 112/55, heart rate 69, respiratory rate 16, temperature 99.1, pulse ox 9 7%. GENERAL: Noted to be awake, alert, comfortable, not in distress. SKIN: Adequate turgor. HEENT: Pinkish conjunctivae, anicteric sclerae. NECK: No neck mass, no carotid bruits, no JVD. CHEST: No deformities. LUNGS: Decreased breath sounds. No wheezing, no crackles. HEART: Normal sinus rhythm. No murmur, no gallops or rubs. ABDOMEN: Globular, soft, nontender. No masses. EXTREMITIES: Trace edema. MEDICATIONS: 08/18/2017 - Reviewed. LABORATORIES: 08/17/2017 - White count 5.9, hemoglobin 11.4, sodium 135, potassium 3.7, chloride 97 , carbon dioxide 29, BUN 28, creatinine 3.98. 08/18/2017 - Glucose 104. ASSESSMENT AND PLAN: 1. Congestive heart failure, clinically much improved with fluid removal from dialysis. The patient has been consulted regarding compliance with her fluid intake. 2. End-stage renal disease - stable, undergoing a 4-hour hemodialysis today. We will max out fluid removal as tolerated. Again, the patient was counseled regarding compliance with her dialysis regime n. From a renal point of view, this patient can be discharged anytime.
[2017-08-18] MEDS: hydrALAZINE 25 MG TAB PER TUBE SCH (12:22)
[2017-08-18] MEDS: cloNIDine 0.1 MG TAB PER TUBE SCH (12:22)
[2017-08-18] MEDS: Docusate 100 MG CAP PO SCH (12:23)
[2017-08-18] MEDS: Carvedilol 3.125 MG TAB PER TUBE SCH (12:23)
[2017-08-18] MEDS: Heparin 5,000 UNITS/ML VIAL SC SCH (12:24)
[2017-08-18] MEDS: Gabapentin 300 MG CAP PO SCH (12:24)
[2017-08-18 14:14] VITALS: BP 183/96; TEMP 98.3
[2017-08-18] MEDS: hydrALAZINE 20 MG/ML VIAL SLOW IVP PRN (14:18)
--- NOTE | 2017-08-18 14:27 | DIS ---
DATE OF DISCHARGE: 08/18/2017 DISCHARGE DISPOSITION: correction. FOLLOWUP: Follow up with Dr. Barnard at the care home. Follow up with Dr. Jacobson for hemodialysis. ALLERGIES: No known drug allergies. DISCHARGE MEDICATIONS: Same as admission medications. 1. Tylenol #3 as needed. 2. Amiodarone 200 mg daily. 3. Aspirin 81 mg daily. 4. Tessalon perles as needed. 5. PhosLo 2001 mg 3 times daily with meals. 6. Carvedilol 3.125 mg b.i.d. 7. Vitamin D3 50,000 units every 7 days. 8. Clonidine 0.1 mg twice a day. 9. Ferrous sulfate 325 mg daily. 10. Folic acid/vitamin B12 one tablet daily. 11. Gabapentin 300 mg daily. 12. Hydralazine 25 mg 3 times daily. 13. Insulin regular sliding scale twice a day. 14. DuoNeb as needed. 15. Imdur ER 30 mg daily. 16. Levothyroxine 100 mcg daily. 17. Loperamide as needed. 18. Losartan 25 mg daily. 19. Niacin 1000 mg at bedtime. 20. Sublingual nitroglycerin as needed. 21. Zofran as needed. 22. Protonix 40 mg daily. 23. Ranitidine as needed. 24. Zoloft 150 mg at bedtime. 25. Trazodone 50 mg at bedtime. 26. Zantac 150 mg daily. INPATIENT CONSULTANTS: Nephrology, Dr. Jacobson; Pulmonary, Dr. Monson. The patient was seen and examined on the day of discharge. Denies any new complaints. Patient under went hemodialysis. BRIEF HOSPITAL COURSE: The patient is a 57-year-old female, a care home resident, with end-stage renal disease, on hemodialysis; COPD; obstructive sleep apnea; diabetes mellitus, type 2; and chronic diastolic heart failure; presented to the hospital with shortness of breath. Please refer to the hi story and physical dated 08/16/2017 for further details. The patient was admitted to the Intensive Care Unit with a diagnosis of acute hypoxic respiratory wicho lure secondary to volume overload. The patient had refused dialysis the day before admission. She w as placed on mechanical ventilation. She showed good improvement with hemodialysis. Next day she was extubated. She got dialyzed again today. She is back to her baseline. She is satu rating at 98% on 2 liter nasal cannula. She has been cleared by consultants for discharge. FINAL DIAGNOSES: 1. Acute hypoxic and hypercapnic respiratory failure, secondary to volume overload. Her ABGs on adm ission showed pH of 7.15 with pCO2 of 88.4. 2. Chronic respiratory failure, on home oxygen. 3. Obstructive sleep apnea/obesity hypoventilation. 4. End-stage renal disease, on hemodialysis with noncompliance. 5. Chronic obstructive pulmonary disease. 6. Obesity with a BMI of 37.1. 7. Chronic diastolic heart failure. 8. Paroxysmal atrial fibrillation, not an anticoagulation candidate. The patient is currently in si nus rhythm. 9. Chronic anemia secondary to renal insufficiency. 10. Hypothyroidism. 11. Hypertension. 12. Dyslipidemia. 13. Gastroesophageal reflux disease. 14. History of cerebrovascular accident with left-sided weakness. 15. Seizure disorder. 16. Hyponatremia. 17. Hyperkalemia. The patient was extensively counseled to be compliant with hemodialysis. The palliative care team marvin guillory also consulted this hospital stay. Repeat labs next week is recommended. Primary care physician nathaly dvised to follow. SIGNIFICANT LABORATORY DATA: Potassium on admission 6.7 with sodium of 126. Total time coordinating the discharge of this patient was 38 minutes.
--- NOTE | 2017-08-18 17:44 | CON ---
DATE OF CONSULTATION: 08/18/2017 SERVICE: Pulmonary Medicine. REASON FOR CONSULTATION: Pleural effusion. HISTORY OF PRESENT ILLNESS: The patient is a 57-year-old female with past medical history s ignificant for heart failure. She had 10% ejection fraction, roughly 8 months ago. At that time, cherie chun was found to have coronary disease and underwent a bypass graft. She presented to the hospital wit h 3-day history of fatigue, weakness, shortness of breath, some type of chest discomfort. She denied any fevers, chills, or sputum production. Otherwise, she was in her usual state of health. Since s he has been here, she has been given some D5 water for some marginal blood sugars. PAST MEDICAL HISTORY: 1. Chronic systolic heart failure. 2. Coronary artery disease, status post coronary bypass graft. 3. Hypothyroidism. 4. Chronic kidney disease, stage 3. 5. Anemia of chronic kidney disease. 6. Type 2 diabetes mellitus. PAST SURGICAL HISTORY: 1. Coronary artery bypass graft x4 vessels. 2. Appendectomy. 3. Right shoulder rotator cuff repair. ALLERGIES: No known drug allergies. MEDICATIONS: List of her inpatient medications were reviewed. No specific updates were made at this time. FAMILY HISTORY: Noncontributory. SOCIAL HISTORY: Negative for alcohol, tobacco or illicit drug use. She has no exposure to chemicals , dust asbestos or tuberculosis. REVIEW OF SYSTEMS: General, head, ears, eyes, nose, throat, cardiovascular, respiratory, GI, , mus culoskeletal, neurologic and skin is negative except as mentioned in the HPI. PHYSICAL EXAMINATION: VITAL SIGNS: Afebrile, pulse 66, blood pressure 113/59, respirations 18, saturation 99% on room air. GENERAL: Patient is awake and alert, in no apparent distress. LUNGS: Excellent air entry on the right. Decreased air entry at the left base. There is no prolong ed expiratory phase. I do appreciate crackles throughout. HEART: Normal rate, regular. ABDOMEN: Soft, nontender, nondistended, bowel sounds positive. MUSCULOSKELETAL: No cyanosis or clubbing. There is trace to 1+ pitting in the bilateral lower extre mities. NEUROLOGIC: Grossly nonfocal. LABORATORY DATA: WBC 9.0, hemoglobin 8.1 and stable, platelets 108,000. pH 7.37, pCO2 34, pO2 73. Urinalysis is positive for blood on the dipstick, but is very few red blood cells. White blood cells have greater than 50. Leukocyte esterase; however, is small and nitrites are negative. There is so me proteinuria and glycosuria. Beta-hydroxybutyric acid is 0.33. Serology including hepatitis B and C are nonreactive. Strep and legionella urine antigens are negative and cultures negative, Influenz a A and B is unremarkable. IMAGING: Chest x-ray demonstrates a left-sided pleural effusion with no other acute cardiopulmonary abnormality. Renal ultrasound demonstrates chronic right hydronephrosis, similar in appearance to e 01/2016 evaluation. There is a left-sided pleural effusion. ASSESSMENT: 1. Acute on chronic systolic heart failure. 2. Pleural effusion on the left. 3. Acute kidney injury and stage 3 chronic kidney disease. 5. Generalized weakness. PLAN: We will perform a thoracentesis to determine characteristics of this fluid, so we can better u nderstand her underlying process Pulmonary Critical Care will continue to follow. Dr. Whittington will re sume care tomorrow. It sounds as though the patient had a viral prodrome. If this weakness does unc lear, consider empiric course of low dose steroid.
== END 2017-08-18 14:32 | DRG 208 ==
LOC: ERS 09:45 → CCU 10:54 → ONC 08-17 17:10
PROVIDERS: ADMIT Internal Medicine; ATTEND Internal Medicine
PROC: 5A1D70Z Performance of Urinary Filtration, Intermittent, Less than 6 Hours Per Day (ICD-10-PCS; principal; 2017-08-16)
PROC: 5A1935Z Respiratory Ventilation, Less than 24 Consecutive Hours (ICD-10-PCS; 2017-08-16)
PROC: 5A09357 Assistance with Respiratory Ventilation, Less than 24 Consecutive Hours, Continuous Positive Airway Pressure (ICD-10-PCS; 2017-08-16)
PROC: 0BH17EZ Insertion of Endotracheal Airway into Trachea, Via Natural or Artificial Opening (ICD-10-PCS; 2017-08-16)
DX: J96.21 Acute and chronic respiratory failure with hypoxia (principal); I13.2 Hypertensive heart and chronic kidney disease with heart failure and with stage 5 chronic kidney disease, or end stage renal disease; G93.41 Metabolic encephalopathy; E87.2 Acidosis; N17.9 Acute kidney failure, unspecified; I48.0 Paroxysmal atrial fibrillation; G40.909 Epilepsy, unspecified, not intractable, without status epilepticus; N18.6 End stage renal disease; I69.954 Hemiplegia and hemiparesis following unspecified cerebrovascular disease affecting left non-dominant side; L97.819 Non-pressure chronic ulcer of other part of right lower leg with unspecified severity; I50.32 Chronic diastolic (congestive) heart failure; E66.2 Morbid (severe) obesity with alveolar hypoventilation; N39.0 Urinary tract infection, site not specified; E87.1 Hypo-osmolality and hyponatremia; E11.22 Type 2 diabetes mellitus with diabetic chronic kidney disease; J96.02 Acute respiratory failure with hypercapnia; Z99.2 Dependence on renal dialysis; Z91.15 Patient's noncompliance with renal dialysis; J44.9 Chronic obstructive pulmonary disease, unspecified; Z68.37 Body mass index [BMI] 37.0-37.9, adult; G47.33 Obstructive sleep apnea (adult) (pediatric); E03.9 Hypothyroidism, unspecified; E78.5 Hyperlipidemia, unspecified; K21.9 Gastro-esophageal reflux disease without esophagitis; Z95.0 Presence of cardiac pacemaker; Z99.81 Dependence on supplemental oxygen; D63.1 Anemia in chronic kidney disease; E87.70 Fluid overload, unspecified; Z51.5 Encounter for palliative care; B96.1 Klebsiella pneumoniae [K. pneumoniae] as the cause of diseases classified elsewhere; Z79.82 Long term (current) use of aspirin; Z79.4 Long term (current) use of insulin; E87.5 Hyperkalemia; Z87.891 Personal history of nicotine dependence; I44.0 Atrioventricular block, first degree
CPT/HCPCS: 31500; 36415; 36416; 71010; 80048; 80069; 82330; 82435; 82553; 82565; 82803; 82805; 82947; 83605; 84132; 84295; 84484; 85014; 85025; 87340; 93005; 94002; 94003; 94640; 94660; 94760; 96365; 96375; A4216; J0360; J1644; J1815; J2270; J2704; J7620; S0028

== ENCOUNTER 2017-09-06 00:39 | Inpatient (IN) | payer MEDICARE, OTHER ==
[2017-09-06 00:53] LABS: Oxyhemoglobin 95.3 % (94.0-97.0); Sodium 130 mmol/L (135-148)
[2017-09-06] MEDS ORDERED: Water For Inject, Bacteriostat 0 ML ONE (00:57)
[2017-09-06] MEDS ORDERED: Vecuronium 10 MG VIAL ONE (00:57)
[2017-09-06 01:04] LABS: Modified Allen's Test POSITIVE; Vent NO
[2017-09-06 01:05] LABS: Mode Nasal Cannula
[2017-09-06 01:09] LABS: #Eosinphils 0.1 thou/uL (0.0-0.7); #Lymphocytes 0.6 thou/uL (1.20-3.40); #Monocytes 0.6 thou/uL (0.11-0.59); %Basophils 0.6 % (0.0-1.0); %Lymphocytes 8.9 % (21.0-51.0); %Monocytes 10.1 % (0.0-10.0); Hematocrit 32.6 % (36.0-47.0); Mean Platelet Volume 9.1 fL (7.4-10.4); Red Blood Cell (RBC) Count 2.93 mill/uL (4.20-5.40); White Blood Cell (WBC) Count 6.3 thou/uL (4.8-10.8)
[2017-09-06 01:18] LABS: PTT 34.2 SEC (22.9-36.1); Prothrombin Time 14.9 SEC (12.0-14.7)
[2017-09-06 01:30] LABS: ALT (SGPT) 8 U/L (8-55); AST (SGOT) 9 U/L (5-34); Alkaline Phosphatase 116 U/L (40-150); Anion Gap 17 mmol/L (10-20); BUN (Urea Nitrogen) 64 mg/dL (9.8-20.1); Bilirubin, Total 0.8 mg/dL (0.2-1.2); Calc. Creatinine Clearance 0 mL/min (70-130); Calcium 8.9 mg/dL (7.8-10.44); Carbon Dioxide 27 mmol/L (22-29); Chloride 90 mmol/L (98-107); Estimated GFR-MDRD 9; Globulin 3.5 g/dL (2.4-3.5); Protein, Total 7.6 g/dL (6.0-8.3)
[2017-09-06 01:34] LABS: CK (CPK) 31 U/L (29-168); Lipase Less than 4 U/L (8-78); Troponin I Less than 0.010 ng/mL (< 0.028)
[2017-09-06 01:48] LABS: Oxyhemoglobin 92.8 % (94.0-97.0); Sodium 130 mmol/L (135-148)
[2017-09-06] MEDS ORDERED: Nitroglycerin 2% Ointment 1 INCH/1 GM Packet ONE (02:14)
[2017-09-06 02:31] LABS: Mode BIPAP S/T; Modified Allen's Test POSITIVE; PIP 16 cmH2O; Vent YES
[2017-09-06 03:17] VITALS: BMI 40.1
[2017-09-06] MEDS ORDERED: Ondansetron HCl/PF 4 MG/2 ML Vial IVP PRN ×2 (03:18→10:02)
[2017-09-06] MEDS ORDERED: Ondansetron ODT 4 MG TAB SL PRN (03:18)
--- NOTE | 2017-09-06 07:26 | RAD ---
1 VIEW CHEST: Date: 09/06/17 HISTORY: Dyspnea. COMPARISON: 08/16/17. FINDINGS: Portable upright chest demonstrates cardiomegaly, pulmonary vascular congestion, patchy interstitial and alveolar opacities. No significant pleural fluid. No pneumothorax. Stable single lead left-sided defibrillator. IMPRESSION: Congestive heart failure. POS: PPP
[2017-09-06] MEDS ORDERED: Nitroglycerin 2% Ointment 1 INCH/1 GM Packet TOP SCH (08:00)
[2017-09-06] MEDS ORDERED: FLU VACC QS2017-18 36 mo. & older 0.5 ML SYRINGE IM ONE (09:00)
--- NOTE | 2017-09-06 09:06 | PRG ---
DATE OF SERVICE: 09/06/2017 SUBJECTIVE: Ms. Felder is a 57-year-old white female who was admitted for congestive heart failur e. The patient missed her hemodialysis yesterday. Please note this patient has history of noncompli ance. We were consulted for emergent hemodialysis. I am currently at the bedside of the patient and supervising her hemodialysis. We are attempting 4 liter fluid removal. So far, she is tolerating t he said dialysis. We have already removed 3.8 liters. She continues to be on BiPAP at the present t tanya. PHYSICAL EXAMINATION: VITAL SIGNS: Blood pressure is 120/70, heart rate 70, pulse ox 93%. GENERAL: The patient is sleeping, noted to have BiPAP, not in distress. SKIN: Adequate turgor. Please note the patient is morbidly obese. HEENT: Slightly pale conjunctivae, anicteric sclerae. NECK: No neck mass, no carotid bruits, no JVD. CHEST: No deformities. LUNGS: Decreased breath sounds. HEART: Normal sinus rhythm. No murmur, no gallops, no rubs. ABDOMEN: Globular, soft, nontender, no masses. EXTREMITIES: Positive for edema. NEUROLOGIC: Sleeping, but arousable, comfortable. Chest x-ray of 09/06/2017 showed congestive heart failure. LABORATORIES: 09/06/2017 - White count 6.3, hemoglobin 10.2, hematocrit 32.6. Sodium 128, potassium 5.8, chloride 90, carbon dioxide 27, BUN 64, creatinine 5.08, glucose 154, calcium 8.9, AST 9, ALT 8 , lipase less than 4, albumin 4.1. BNP is 2630, troponin I 0.01. MEDICATIONS: 09/06/2017 - Reviewed. ASSESSMENT AND PLAN: 1. Congestive heart failure, emergent hemodialysis. Attempting to max out fluid removal as tolerate d. We have removed so far with the dialysis 3.8 liters. I am attempting 4 liter fluid removal. I h ave not excluded in doing another dialytic intervention in the a.m. for fluid removal with this patie nt. 2. End-stage renal disease, continuing 3 times a week hemodialysis. Please note the patient has his tory of noncompliance with her outpatient dialysis. She has been counseled numerous times regarding to this fact. She also has had multiple admissions for congestive heart failure. As previously ment ioned, I may need to do an extra hemodialysis with this patient in a.m. for further fluid removal. 3. Anemia. Start Epogen 7500 units subcu q. week.
[2017-09-06] MEDS ORDERED: Epoetin (ESRD) 20,000 UNITS/ML SC SCH (10:00)
[2017-09-06] MEDS ORDERED: Acetaminophen 650 MG Suppository PR PRN (10:02)
[2017-09-06] MEDS ORDERED: Acetaminophen 325 MG TAB PO PRN (10:02)
[2017-09-06] MEDS ORDERED: Senokot 8.6 MG TAB PO PRN (10:02)
[2017-09-06] MEDS ORDERED: Ondansetron ODT 4 MG TAB PO PRN (10:02)
[2017-09-06] MEDS ORDERED: Nitroglycerin 0.4 MG TAB (25 Tab Bottle) PO PRN (10:02)
--- NOTE | 2017-09-06 10:17 | HP ---
DATE OF ADMISSION: 09/06/2017 PRIMARY CARE PHYSICIAN: Dr. Barnard at the [facility]. PRIMARY PHONE ENGINEER: Dr. Jacobson. CHIEF COMPLAINT: Altered mentation. HISTORY OF PRESENT ILLNESS: Patient is a 57-year-old female [facility] resident with end-stage renal disease on hemodialysis, COPD, obstructive sleep apnea, diabetes mellitus type 2, and chronic diastolic heart failure who presented to the hospital with altered mentation. She was discharged from this facility approximately 18 days ago with similar complaints. She was diagnosed with acute hypoxic and hypercapnic respiratory failure requiring emergent hemodialysis. She was also placed on mechanical ventilation. The patient was brought into the emergency room with altered mentation. Please note that patient had refused dialysis since Tuesday. Her mentation gradually worsened along with shortness of breath for which EMS was called. Per ER report , patient was sitting on the chair and dropped her head without a fall. She was then brought to the emergency room. At this time, patient is on noninvasive positive pressure ventilation and follows commands to some extent. She is awake. In the emergency room, initial vital signs showed temperature 97.9 with respiration of 18, pulse of 79, blood pressure 161/99 with O2 saturation 99% on noninvasive positive pressure ventilation. A chest x-ray was consistent with volume overload. Her blood gases showed pH of 7.14 with pCO2 98.3, pO2 149.5 with bicarbonate 32.4 on noninvasive positive pressure ventilation. She underwent an emergent hemodialysis. PAST MEDICAL HISTORY: 1. Recent hospitalization for respiratory failure secondary to volume overload. 2. Chronic respiratory failure on home oxygen. 3. Obstructive sleep apnea/obesity hypoventilation. 4. End-stage renal disease on hemodialysis with noncompliance. 5. Chronic obstructive pulmonary disease. 6. Obesity with body mass index 40.2. 7. Paroxysmal atrial fibrillation, not an anticoagulation candidate. 8. Chronic diastolic heart failure. 9. Chronic anemia. 10. Hypothyroidism. 11. Hypertension. 12. Dyslipidemia. 13. Gastroesophageal reflux disease. 14. History of cerebrovascular accident with residual left-sided weakness. 15. Seizure disorder. 16. Chronic right knee ulcer. PAST SURGICAL HISTORY: 1. Dialysis access. 2. Tonsillectomy. 3. Hysterectomy. 4. Colonoscopy with polypectomy. 5. Hernia repair. 6. AICD/pacemaker placement. ALLERGIES: No known drug allergies. CURRENT HOME MEDICATIONS: We will try to obtain accurate list of medications from the [facility]. The patient cannot recall any of her home medications. FAMILY HISTORY: Positive for diabetes, hypertension, and coronary artery disease in several family members per review of previous records. SOCIAL HISTORY: No tobacco, alcohol or drug use. REVIEW OF SYSTEMS: Cannot be obtained from the patient due to current cognitive status. PHYSICAL EXAMINATION: VITAL SIGNS: As discussed above. GENERAL: A 57-year-old female and on noninvasive positive pressure ventilation. Undergoing hemodialysis. HEENT: Head is atraumatic, normocephalic. Sclerae are anicteric. Moist mucous membrane, no oral lesion. NECK: Supple, no JVD, no neck stiffness. LUNGS: Showed bibasilar rales with scattered rhonchi. No wheezing. Lungs were symmetrical. HEART: S1 and S2 present. Regular rate and rhythm. No rubs, gallops or heaves appreciated. ABDOMEN: Soft, nontender, bowel sounds present. EXTREMITIES: 2+ edema in bilateral lower extremities. There is dressing over the chronic right knee wound. SKIN: Warm and dry. LYMPH NODES: No palpable lymph nodes in the neck. NEUROLOGIC: As discussed above. PSYCHIATRIC: As discussed above. LYMPH NODES: No palpable lymph nodes in the neck. LABORATORY DATA AND X-RAY FINDINGS: 1. Laboratory findings as discussed above. Sodium was 128 with potassium 5.8, BUN 64, creatinine 5.0, BNP 2630. Troponins were negative. 2. CBC showed WBC 6.3 with hemoglobin 10.2, hematocrit 32.6, and platelet of 176. 3. Chest x-ray by my review as discussed above. 4. EKG by my review showed sinus rhythm with first degree AV block with left axis deviation. IMPRESSION: 1. Acute hypoxic and hypercapnic respiratory failure secondary to volume overload. Please note that patient had missed hemodialysis. 2. Obstructive sleep apnea/obesity hypoventilation. 3. End-stage renal disease on hemodialysis with noncompliance. 4. Chronic respiratory failure on home oxygen. 5. Chronic obstructive pulmonary disease. 6. Obesity with body mass index 40.2. 7. Chronic diastolic heart failure. 8. Hypertension. 9. Hyponatremia. 10. Hyperkalemia. 11. History of seizure disorder. 12. History of cerebrovascular accident with residual left-sided weakness. 13. Chronic right knee wound. 14. Gastroesophageal reflux disease. 15. Dyslipidemia. 16. Hypothyroidism. 17. Chronic anemia secondary to renal insufficiency. PLAN: The patient will be monitored in the intermediate care unit. We will consult Nephrology as well as critical care. We will continue noninvasive positive pressure ventilation. We will resume home medications once confirmed. Telemetry monitoring. Repeat labs in a.m. Consult palliative care. Plan of care was discussed with the patient in detail and she stated understanding. No family at the bedside. ARCHIE
--- NOTE | 2017-09-06 10:25 | CON ---
DATE OF CONSULTATION: 09/06/2017 REASON FOR CONSULTATION: Acute hypoxic respiratory failure. This encompasses 45 minutes of critical care time spent evaluating the patient, reviewing records. HISTORY OF PRESENT ILLNESS: The patient is a 57-year-old female, who has end-stage dialysis and live s in a nursing facility. She apparently had been refusing dialysis, she became decreasingly responsi ve. She presented to the emergency room for further evaluation. She received dialysis this morning and is now breathing better. PAST MEDICAL HISTORY: 1. Chronic systolic heart failure. 2. Coronary artery disease, requiring bypass grafting surgery. 3. Hypothyroidism. 4. Chronic kidney disease, stage 4. 5. Diabetes mellitus type 2. PAST SURGICAL HISTORY: 1. Coronary bypass grafting surgery. 2. Appendectomy. 3. Right shoulder rotator cuff repair. 4. AV fistula placement. ALLERGIES: None. SOCIAL HISTORY: Nonsmoker, does not consume alcohol. FAMILY MEDICAL HISTORY: Unremarkable. REVIEW OF SYSTEMS: Unobtainable secondary to her being on mechanical ventilation this time. MEDICATIONS PRIOR TO ADMISSION: These were reviewed and are listed under home medication in the comp uter. PHYSICAL EXAMINATION: VITAL SIGNS: Temperature 97.5, pulse 64, respirations 20, O2 sat 99% on BiPAP, and blood pressure 11 2/60. GENERAL: She is awake. She indicates that she is no longer short of breath. HEENT: Unremarkable. NECK: No JVD. CHEST: Diminished breath sounds in the bases. CARDIOVASCULAR: S1 and S2 regular, without murmur. ABDOMEN: Soft, obese, nontender, nondistended. EXTREMITIES: Diffuse trace edema throughout. X-RAY FINDINGS: Her chest x-ray shows a pacemaker/defibrillator. She has some pulmonary edema prese nt, no evidence of effusions. LABORATORY DATA: White blood cell count 6.3, hematocrit 32.6, platelet count 176. INR 1.2. Initial pH 7.17, pCO2 of 90, pO2 of 96 that was on BiPAP. Sodium 128 , potassium 5.8, chloride 90, CO2 of 2 7, BUN 64, creatinine 5.1, glucose 154. BNP 2630. Past echocardiogram has shown systolic function of 40% to 45%. ASSESSMENT: 1. Acute congestive heart failure related to fluid overload. This would have to be assumed to be sy stolic failure. 2. Chronic renal failure with poor compliance with dialysis. 3. Acute respiratory failure, requiring mechanical ventilation. RECOMMENDATIONS: I would recommend trying her off the BiPAP now that she has had dialysis. If she d oes well off the BiPAP, then she can be transferred to the floor later this afternoon, further care p er Nephrology and Internal Medicine.
[2017-09-06] MEDS: Calcium Acetate 667 MG CAP PO SCH ×2 (12:32→17:28)
[2017-09-06] MEDS: Heparin 5,000 UNITS/ML VIAL SC SCH ×2 (17:27→20:56)
[2017-09-06] MEDS: hydrALAZINE 25 MG TAB PO SCH ×2 (17:27→20:55)
[2017-09-06] MEDS: cloNIDine 0.1 MG TAB PO SCH (20:55)
[2017-09-06] MEDS: Docusate 100 MG CAP PO SCH (20:55)
[2017-09-06] MEDS: Carvedilol 3.125 MG TAB PO SCH (20:56)
[2017-09-06] MEDS ORDERED: Famotidine/PF 20 mg/2ml Vial SLOW IVP SCH (21:00)
[2017-09-06] MEDS ORDERED: traZODone HCl 50 MG TAB PO SCH (21:00)
[2017-09-07] MEDS ORDERED: Levothyroxine Sodium 100 MCG TAB PO SCH (06:00)
[2017-09-07 06:13] LABS: Anion Gap 12 mmol/L (10-20); BUN (Urea Nitrogen) 32 mg/dL (9.8-20.1); Calc. Creatinine Clearance 27 mL/min (70-130); Calcium 8.4 mg/dL (7.8-10.44); Carbon Dioxide 30 mmol/L (22-29); Chloride 92 mmol/L (98-107); Estimated GFR-MDRD 14
[2017-09-07 06:25] LABS: Hematocrit 28.4 % (36.0-47.0); Mean Platelet Volume 9.7 fL (7.4-10.4); Red Blood Cell (RBC) Count 2.59 mill/uL (4.20-5.40); White Blood Cell (WBC) Count 4.2 thou/uL (4.8-10.8)
[2017-09-07 06:34] LABS: Metamyelocyte 1 % (0-0); Neutrophil 56 % (42-75)
[2017-09-07] MEDS ORDERED: Ferrous Sulfate 325 MG TAB PO SCH (08:00)
[2017-09-07] MEDS ORDERED: Gabapentin 300 MG CAP PO SCH (09:00)
[2017-09-07] MEDS: Calcium Acetate 667 MG CAP PO SCH ×2 (11:35→11:49)
[2017-09-07] MEDS: cloNIDine 0.1 MG TAB PO SCH (11:47)
[2017-09-07] MEDS: Heparin 5,000 UNITS/ML VIAL SC SCH ×2 (11:47→16:47)
[2017-09-07] MEDS: Carvedilol 3.125 MG TAB PO SCH (11:47)
[2017-09-07] MEDS: Docusate 100 MG CAP PO SCH (11:48)
[2017-09-07] MEDS: hydrALAZINE 25 MG TAB PO SCH ×2 (11:48→16:47)
--- NOTE | 2017-09-07 12:15 | PRG ---
DATE OF SERVICE: 09/07/2017 The patient is awake, alert, responsive, no longer encephalopathic. Denies any difficulty breathing. She is being dialyzed. PHYSICAL EXAMINATION: VITAL SIGNS: Blood pressure is 98/80, sats 91 on 2 liters, respirations 18, temperature 98. CHEST: Chest revealed decreased breath sounds, no wheezing. CARDIAC: Normal S1-S2. ABDOMEN: Soft. No masses. LABORATORY: White count 4000, H&H 9 and 28, platelet count 23, creatinine is 3.4. X-ray taken yesterday shows the previously described pacemaker and cephalization. IMPRESSION: 1. Respiratory failure secondary to fluid overload. 2. Renal failure on dialysis with poor compliance. 3. Morbid obesity. 4. Sleep apnea. PLAN: She wants to go home. She says she is walking in the residential without any help with a wal ker. I suggest she could be discharged home, continue nocturnal CPAP. Encouraged her to lose weight.
--- NOTE | 2017-09-07 12:21 | PRG ---
DATE OF SERVICE: 09/07/2017. SUBJECTIVE: Ms. Felder is a 57-year-old female admitted for congestive heart failure. 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 Breathing is better. She is currently at dialysis. No new complaints. OBJECTIVE: VITAL SIGNS: Blood pressure 98/64, heart rate 73, pulse ox 95%. GENERAL: Awake, alert, supine, obese, not in distress. SKIN: Adequate turgor. HEENT: Slightly pale conjunctiva, anicteric sclerae, no neck mass, no JVD CHEST: No deformities. LUNGS: Decreased breath sounds. HEART: Normal sinus rhythm. No murmur, no gallops, no rubs. ABDOMEN: Globular. Soft, nontender, no masses. EXTREMITIES: No edema, no deformities. NEUROLOGIC: Moving all extremities, oriented in 3 spheres. No tremors or asterixis. LABORATORIES: Reviewed ASSESSMENT AND PLAN: 1. ESRD. Continue 3 times a week hemodialysis regimen with this patient. Again, fluid removal as tolerated. We will shorten time to 3 hours due to the fact that she did a 4-hour hemodialysis yesterday 2. Congestive heart failure, clinically much improved with dialysis. Fluid removal as tolerated. 3. Anemia. Continue weekly Epogen. Counselling has been done on this patient regarding compliance with her dialysis regimen. Overall, prognosis remains guarded. MTDD
[2017-09-07 17:11] VITALS: BP 137/70; TEMP 97.7
--- NOTE | 2017-09-07 17:27 | DIS ---
DATE OF DISCHARGE: 09/07/2017 DISCHARGE DISPOSITION: [facility]. ALLERGIES: No known drug allergies. The patient was seen and examined on the day of discharge, denies any new complaints. No chest pain, shortness of breath, palpitations. The patient is sitting on the side of the bed without any shortn ess of breath. BRIEF HOSPITAL COURSE: The patient is a 57-year-old female with end-stage renal disease on hemodialy sis, COPD, obstructive sleep apnea, diabetes mellitus type 2, and chronic diastolic heart failure, wh o presented to the hospital with altered mentation. Her workup in the emergency room was consistent with volume overload with pH of 7.14 with pCO2 of 98.3, requiring emergent hemodialysis. She did wel l in the intermediate care unit. She has been cleared by Nephrology and Pulmonary for discharge. Seng chun was extensively counseled to be compliant with hemodialysis. This episode happened because she mis sed hemodialysis session. FINAL DIAGNOSES: 1. Acute hypoxic and hypercapnic respiratory failure secondary to volume overload. 2. Toxic metabolic encephalopathy secondary to above. 3. Obstructive sleep apnea/obesity hypoventilation. 4. End-stage renal disease on hemodialysis with noncompliance. 5. Chronic respiratory failure on home oxygen. 6. Chronic obstructive pulmonary disease. 7. Obesity with a BMI 40.2. 8. Chronic diastolic heart failure. 9. Hypertension. 10. Hyponatremia. 11. Hyperkalemia on admission, resolved. Her potassium on the day of discharge is 4.9. 12. Seizure disorder. 13. History of cerebrovascular accident with residual left-sided weakness. 14. Chronic right knee wound followed by Wound Care. 15. Gastroesophageal reflux disease. 16. Dyslipidemia. 17. Hypothyroidism. 18. Chronic anemia secondary to renal insufficiency. 19. No changes in the medications were made. FOLLOWUP: Follow up with primary care physician, Dr. Barnard at the longterm. Total time coordinating the discharge of this patient was 33 minutes.
[2017-09-08] MEDS ORDERED: Heparin 10,000 UNITS/ 10 ML VIAL ONE (11:01)
== END 2017-09-07 17:17 | DRG 640 ==
LOC: ERS 00:39 → IMCU/EMU 03:00
PROVIDERS: ADMIT Internal Medicine Addiction Medicine; ATTEND Internal Medicine Addiction Medicine
PROC: 5A1D70Z Performance of Urinary Filtration, Intermittent, Less than 6 Hours Per Day (ICD-10-PCS; principal; 2017-09-06)
PROC: 5A09457 Assistance with Respiratory Ventilation, 24-96 Consecutive Hours, Continuous Positive Airway Pressure (ICD-10-PCS; 2017-09-06)
DX: E87.5 Hyperkalemia (principal); J96.22 Acute and chronic respiratory failure with hypercapnia; I13.2 Hypertensive heart and chronic kidney disease with heart failure and with stage 5 chronic kidney disease, or end stage renal disease; G93.41 Metabolic encephalopathy; N18.6 End stage renal disease; D63.1 Anemia in chronic kidney disease; E11.9 Type 2 diabetes mellitus without complications; E87.1 Hypo-osmolality and hyponatremia; I69.354 Hemiplegia and hemiparesis following cerebral infarction affecting left non-dominant side; Z68.41 Body mass index [BMI] 40.0-44.9, adult; I50.32 Chronic diastolic (congestive) heart failure; E87.70 Fluid overload, unspecified; Z99.81 Dependence on supplemental oxygen; E66.01 Morbid (severe) obesity due to excess calories; S81.001A Unspecified open wound, right knee, initial encounter; E78.5 Hyperlipidemia, unspecified; K21.9 Gastro-esophageal reflux disease without esophagitis; J44.9 Chronic obstructive pulmonary disease, unspecified; E03.9 Hypothyroidism, unspecified; G40.909 Epilepsy, unspecified, not intractable, without status epilepticus; G47.33 Obstructive sleep apnea (adult) (pediatric); Z99.2 Dependence on renal dialysis; Z91.15 Patient's noncompliance with renal dialysis; Z95.810 Presence of automatic (implantable) cardiac defibrillator; Z83.3 Family history of diabetes mellitus; Z82.49 Family history of ischemic heart disease and other diseases of the circulatory system; X58.XXXA Exposure to other specified factors, initial encounter
CPT/HCPCS: 36415; 36416; 71010; 80048; 80053; 82553; 82805; 83690; 83880; 84484; 85025; 85610; 85730; 90935; 93005; 94640; 94660; 94760; G0257; J7620; Q4081

== ENCOUNTER 2017-10-11 01:35 | Inpatient (IN) | payer MEDICARE, OTHER ==
[2017-10-11 02:17] LABS: #Lymphocytes 0.5 thou/uL (1.20-3.40); #Monocytes 0.6 thou/uL (0.11-0.59); #Neutrophils 3.1 thou/uL (1.40-6.50); %Basophils 0.7 % (0.0-1.0); %Eosinophils 0.7 % (0.0-10.0); %Monocytes 14.7 % (0.0-10.0); %Neutrophils 72.9 % (42.0-75.0); Hemoglobin 10.1 g/dL (12.0-16.0); Mean Corpuscular Hemoglobin 34.6 pg (27.0-31.0); Platelet Count 148 thou/uL (130-400); RBC Distribution Width 17.3 % (11.5-14.5); Red Blood Cell (RBC) Count 2.93 mill/uL (4.20-5.40); White Blood Cell (WBC) Count 4.3 thou/uL (4.8-10.8)
[2017-10-11 02:25] LABS: ALT (SGPT) 13 U/L (8-55); AST (SGOT) 32 U/L (5-34); Albumin 4.2 g/dL (3.5-5.0); Alkaline Phosphatase 78 U/L (40-150); Anion Gap 17 mmol/L (10-20); BUN (Urea Nitrogen) 27 mg/dL (9.8-20.1); Bilirubin, Total 0.7 mg/dL (0.2-1.2); Calc. Creatinine Clearance 0 mL/min (70-130); Calcium 9.6 mg/dL (7.8-10.44); Carbon Dioxide 28 mmol/L (22-29); Chloride 92 mmol/L (98-107); Estimated GFR-MDRD 16; Globulin 3.9 g/dL (2.4-3.5); Glucose 111 mg/dL (70-105); Magnesium 2.3 mg/dL (1.6-2.6); Phosphorus 2.8 mg/dL (2.3-4.7); Potassium 4.2 mmol/L (3.5-5.1); Protein, Total 8.1 g/dL (6.0-8.3); Sodium 133 mmol/L (136-145)
[2017-10-11] MEDS ORDERED: methylPREDNISolone Sod Succ/PF 125 MG/2 ML VIAL ONE (02:29)
[2017-10-11 02:43] LABS: CKMB 2.4 ng/mL (0-6.6); Troponin I 0.018 ng/mL (< 0.028)
[2017-10-11] MEDS ORDERED: Cefepime 2 GM/10 ML SYR ONE (03:34)
[2017-10-11] MEDS ORDERED: Albuterol Sulfate 2.5 mg/3 ml Neb NEB PRN ×2 (04:40→05:03)
[2017-10-11] MEDS ORDERED: Ondansetron ODT 4 MG TAB SL PRN (04:41)
[2017-10-11] MEDS ORDERED: Acetaminophen 325 MG TAB PO PRN ×2 (04:41→05:03)
[2017-10-11] MEDS ORDERED: Ondansetron HCl/PF 4 MG/2 ML Vial IVP PRN ×2 (04:41→05:03)
[2017-10-11] MEDS ORDERED: HYDROcodone/Acetaminophen 5/325 mg Tablet PO PRN (05:03)
[2017-10-11] MEDS ORDERED: HYDROcodone/Acetaminophen 10/325 mg Tablet PO PRN (05:03)
[2017-10-11] MEDS ORDERED: Dextrose 5% in Water 1,000 ML IV PRN (05:03)
[2017-10-11] MEDS ORDERED: Dextrose 50% Abboject 50 ML SYRINGE SLOW IVP PRN (05:03)
[2017-10-11] MEDS ORDERED: HumaLOG 300 UNITS/3 ML VIAL SC PRN (05:03)
[2017-10-11 05:08] VITALS: BMI 35.9
[2017-10-11] MEDS ORDERED: Cefepime 1 GM in Sodium Chloride 0.9% 100 ML IVPB SCH (05:30)
[2017-10-11] MEDS: Levothyroxine Sodium 100 MCG TAB PO SCH (06:01)
--- NOTE | 2017-10-11 06:22 | HP ---
DATE OF ADMISSION: 10/11/2017 TIME OF SERVICE: 0400 hours. PRIMARY CARE PHYSICIAN: Dr. Barnard. PRIMARY FACULTY I ON CALL MEDICAL ASSISTANT: Dr. Clay Jacobson. CHIEF COMPLAINT: Shortness of breath. HISTORY OF PRESENT ILLNESS: Ms. Felder is a 57-year-old female well known to us fr om multiple recent admissions. Patient presented to the emergency department today via EMS for short ness of breath. EMS called because her mother was worried about her breathing. On arrival, she is a pparently able to tell me she was breathing like normal, but did have a dry cough worse than normal. She denied any fever. She is a Tuesday, Tuesday, Tuesday dialysis patient, secondary to end-stage r enal disease and had dialysis on the day of presentation and did not complete full dialysis. No ches t pain, no nausea, and vomiting. Since the initial arrival, she became more obtunded and altered. She has been placed on BiPAP and AB G showed severe respiratory acidosis and we were called for admission. The patient is able to awaken with a sternal rub, but does not visualize or answer questions. Remainder of history is taken from the chart. There is no family at the bedside. PAST MEDICAL HISTORY: 1. Congestive heart failure. Last echocardiogram was on 10/28/[address] Willis Thomas. It showed EF of 40% to 45%, mild global left ventricular hypokinesis, defibrillator wire seen in th e right side of the heart. Mild MR, mild TR, and no mention about diastolic dysfunction. 2. Atrial fibrillation, chronic. 3. Diabetes mellitus type 2. 4. Hyperlipidemia. 5. End-stage renal disease, on hemodialysis Tuesday, Tuesday, and Tuesday. 6. Obesity. 7. Seizure disorder. 8. Chronic hypoxic and hypercapnic respiratory failure. 9. Anemia of renal disease. PAST SURGICAL HISTORY: Include: 1. Pacemaker placement/AICD placement. 2. Left upper extremity fistula creation. HOME MEDICATIONS: 1. Amiodarone 200 mg p.o. daily. 2. Aspirin 81 mg daily. 3. Coreg 3.25 mg p.o. b.i.d. 4. Gabapentin 300 mg p.o. daily. 5. Imdur 20 mg p.o. daily. 6. Clonidine 0.1 mg p.o. b.i.d. 7. Hydralazine 25 mg p.o. t.i.d. 8. Levothyroxine 100 mcg daily. 9. Niacin 1000 mg p.o. b.i.d. 10. Zoloft 150 mg p.o. q.a.m. 11. Aspirin 325 mg daily. 12. Imodium as needed. 13. Regular insulin sliding scale. 14. Trazodone 100 mg p.o. at bedtime. 15. DuoNebs q.4 hours. 16. PhosLo 667 mg tablets x2 t.i.d. with meals. 17. Protonix 40 mg b.i.d. 18. Toyin-David 0.8 mg p.o. q.a.m. 19. Vitamin D2 of 5000 units p.o. q. week. ALLERGIES: NKDA. FAMILY HISTORY: Not obtainable at this point. No history of clotting or bleeding disorders. No imm une dysfunction. SOCIAL HISTORY: Notable for tobacco abuse. Some notes suggest that she quit less than a year ago ev idencing that she is still smoking. She is able to tell me present. No history of alcohol or IV charles g use. REVIEW OF SYSTEMS: A 10-point review of systems was performed. The patient was not able to stay donell ke long enough to answer. PHYSICAL EXAMINATION: VITAL SIGNS: Temperature is 98.0, pulse 74, blood pressure 156/86, respiratory rate 20, satting 99% on BiPAP. GENERAL: She is a somnolent and lethargic. She is arousable to sternal rub and opens her eyes: Her pupils are 2 mm and minimally reactive. She does not answer questions or follow commands. HEENT: Normocephalic, atraumatic. Pupils again are 2 mm and minimally reactive. Mucous membranes a re moist. There are no visible lesions or thrush. BiPAP mask is in place. She is currently 15/5 wi th a rate of 20. NECK: Supple with no lymphadenopathy, no JVD, and no thyromegaly. She has normal carotid upstrokes without bruits. LUNGS: Have coarse crackles bilaterally. She has poor air movement. She is slightly tachypneic. I do not appreciate any wheezing. CARDIOVASCULAR: She is normal cardiac and irregular. She has no audible murmurs over the BiPAP mach ine. ABDOMEN: Obese. It is nontender. Cannot palpate internal organs. She has no rebound or rigidity. EXTREMITIES: Show no cyanosis or clubbing. Bilateral extremities have 2+ edema to the knee level. SKIN: Otherwise warm, moist, well perfused. She has no other rash or lesions noted. NEUROLOGIC: Not testable. She does move all four extremities. Her strength is approximately 4/5. Cranial nerves not testable due to lethargy. MUSCULOSKELETAL: Normal to inspection. She has no inflamed joints. No palpable effusions. LABORATORY DATA: Sodium 133, potassium 4.2, chloride 92, bicarbonate 28, BUN 27, creatinine 3.01 and glucose of 111, calcium 9.6. Liver function normal. CBC showed a white count of 4.3, hemoglobin 10.1, hematocrit 32.7 and platele t count was 140,000. Her BNP is 26, which is stable from last admission. CK-MB 2.4, troponin I 0.018. Chest x-ray shows to be looked like a bilateral pulmonary edema. Official report is pending. ASSESSMENT AND PLAN: 1. Acute on chronic combined, hypercapnic, and hypoxic respiratory failure. PH in the emergency dep artment was 7.2. She had a pCO2, I believe, 78. We will continue BiPAP as they put her on. She has a history of chronic obstructive pulmonary disease and congestive heart failure. I am not sure if s he makes urine, but I have notified Dr. Jacobson for admission. She may benefit from the ultrafiltration. In the meantime, we will give her sublingual, Lasix if she responds. I will continue her on BiPAP, will use DuoNebs q.4 hours and albuterol q.2 hours p.r.n. We will start Solu-Medrol. She does have a little bit of asymmetric edema with right more than left. We will cover her for healthcare associ ated pneumonia with cefepime and levofloxacin. I do not believe that she has a Staph pneumonia; ther efore, I have held the vancomycin. 2. Chronic atrial fibrillation, currently rate controlled. 3. Diabetes mellitus type 2, we will place her on a moderate Humalog sliding scale insulin. Certain ly, sugars go up on steroids. 4. Hyperlipidemia. Continue home medication of end-stage renal disease. Again Dr. Jacobson has been con sulted. 5. Obesity. 6. Seizure disorder. She is on antiepileptics and gabapentin. 7. Anemia of renal disease, currently stable. The patient was placed in the Intermediate Care Unit.
--- NOTE | 2017-10-11 07:39 | RAD ---
FRONTAL RADIOGRAPH CHEST: Date: 10-11-17 Comparison: 09-06-17 History: Shortness of breath, dialysis patient. FINDINGS: There is a stable single lead AICD present. No pneumothorax is seen. Cardiac silhouette is prominent, a stable finding. There is stable pulmonary vascular congestion. Sta ble interstitial opacity noted in the bilateral perihilar regions and both lung bases with probable m ild left basilar and mid right lung zone airspace disease. IMPRESSION: Interstitial and alveolar opacity with pulmonary vascular congestion and prominent cardiac silhouette suggests pulmonary edema. Follow up imaging following treatment to document resolution advised. Infe ctious pneumonitis or aspiration cannot be excluded. POS: [facility]
[2017-10-11 08:09] LABS: HBSAg Index 0.36 S/CO (0-0.99); Hep B Surf Ag Non-Reactive S/CO (NonReactive)
[2017-10-11] MEDS ORDERED: Epoetin (ESRD) 20,000 UNITS/ML SC SCH (09:00)
--- NOTE | 2017-10-11 09:52 | CON ---
DATE OF CONSULTATION: 10/11/2017. SUBJECTIVE: Ms. Felder is a 57-year-old white female with ESRD and was admitted due acute respira tory distress. Please note that this patient has history of noncompliance with her dialysis regimen. On the day of admission, the patient was said to have received dialysis at the dialysis unit. Later that night, cherie chun developed acute respiratory distress. She had diffuse wheezing. The possibility of a COPD exacerb ation was also entertained. We are now being consulted for her maintenance hemodialysis. Due to the respiratory distress I have decided to do an extra dialysis today with this patient. We are attempt ing to do 1 hour ultrafiltration and 1 hour hemodialysis with this patient. The chest x-ray did show congestive heart failure. REVIEW OF SYSTEMS: Positive for shortness of breath, no chest pain, no syncopal episode, no nausea, no vomiting, no diarrhea, positive for insomnia. No gross hematuria. No dysuria, no urinary frequen cy. No abdominal pain, no headache. Appetite and energy level is decreased. MEDICATIONS: [place] 10/325 q.4h. p.r.n., DuoNeb q.4h., Cordarone 200 mg daily, aspirin 81 mg tab once a day, calcium acetate 667 mg 2 tabs t.i.d. with meals, Coreg 3.125 mg b.i.d., cefepime 1 gram daily , Pepcid 20 mg IV daily, Neurontin 300 mg daily, hydralazine 25 mg p.o. t.i.d., Humalog sliding scale , Imdur ER 30 mg every day, Levaquin 250 mg q.48h., Synthroid 100 mcg daily. Losartan 25 mg daily. Solu-Medrol 40 mg IV q.6h., Zofran 4 mg IV q.6h. p.r.n., Protonix 40 mg tab once a day. PAST MEDICAL HISTORY: 1. COPD. 2. End-stage renal disease, currently on maintenance hemodialysis - secondary to diabetic nephropath y. 3. Type 2 diabetes mellitus. 4. Insomnia. 5. History of noncompliance. 6. Status post CHF. 7. Hyperlipidemia. 8. Hypothyroidism. 9. Status post CVA ? of seizure disorder. 10. GERD. 11. Hypertension. PAST SURGICAL HISTORY: 1. Status post cardiac catheterization. 2. Status post hernia repair. 3. Status post cholecystectomy. 4. Status post AV fistula placement. 5. Status post pacemaker/AICD placement. 6. Status post cuffed hemodialysis catheter placement. 7. Status post hysterectomy. 8. Status post colonoscopy. SOCIAL HISTORY: The patient is originally from [place], currently a long term patient. She is ma rried, 7 children. No history of smoking. No alcohol intake. No IV drug abuse. Status post blood transfusions. Sedentary lifestyle. ALLERGIES: None. TRAUMA: None. IMMUNIZATIONS: Up to date. HOSPITALIZATIONS: Please see past medical history. FAMILY HISTORY: No family history of ESRD. PHYSICAL EXAMINATION: VITAL SIGNS: Blood pressure noted at 130/70 with a heart rate of 80. GENERAL: Noted to be sleepy, but arousable, noted to be on BiPAP. HEENT: Slightly pale conjunctivae, anicteric sclerae. NECK: No neck mass, no carotid bruits, no JVD. CHEST: No deformities. LUNGS: Decreased breath sounds. HEART: Normal sinus rhythm. No murmur, no gallops, no rubs. ABDOMEN: Globular, soft, nontender. EXTREMITIES: Positive for edema. NEUROLOGIC: The patient is arousable. Moving all extremities. LABORATORY: 10/11/2017 - White count 4.3, hemoglobin 10.1, sodium 133, potassium 4.2, chloride 92, c arbon dioxide 28, BUN 27, creatinine 3.01, glucose 111, calcium 9.6, phosphorus 2.8. Chest x-ray shows CHF. ASSESSMENT AND PLAN: 1. Chronic anemia. Start Epogen 7500 units subcu week. 2. Congestive heart failure/acute respiratory distress on BiPAP. Undergoing emergent hemodialysis f or fluid removal. 3. End-stage renal disease, stable. Continue current Tuesday, Tuesday, Tuesday hemodialysis regimen . The patient receiving extra dialysis today due to volume overload. I am doing a 1 hour ultrafiltr ation to max out fluid removal. After the 1 hour ultrafiltration will do a 1-hour hemodialysis with this patient. Please note that this patient has history of noncompliance with her dialysis regimen. Overall, progn osis remains guarded.
[2017-10-11] MEDS: Calcium Acetate 667 MG CAP PO SCH ×3 (11:05→16:28)
[2017-10-11] MEDS: Gabapentin 300 MG CAP PO SCH (11:06)
[2017-10-11] MEDS: Losartan 25 MG TAB PO SCH (11:06)
[2017-10-11] MEDS: Amiodarone 200 MG TAB PO SCH (11:06)
[2017-10-11] MEDS: hydrALAZINE 25 MG TAB PO SCH ×3 (11:07→20:22)
[2017-10-11] MEDS: Carvedilol 3.125 MG TAB PO SCH ×2 (11:07→20:22)
[2017-10-11] MEDS: Famotidine/PF 20 mg/2ml Vial SLOW IVP SCH (11:07)
--- NOTE | 2017-10-11 11:45 | CON ---
DATE OF CONSULTATION: 10/11/2017 SERVICE: Pulmonary Medicine. REASON FOR CONSULTATION: Respiratory failure. HISTORY OF PRESENT ILLNESS: The patient is a 57-year-old female with past medical history s ignificant for chronic systolic and diastolic heart failure and end-stage renal disease. She demonst rates poor compliance with her dialysis sessions and frequently will end them early. She does not re member why she was brought to the hospital, but the nursing facility sent her over here because of sh ortness of breath based on medical records. She denies any recent fever, chills, cough, or congestio n, though she is coughing in the IMCU. She denies any sputum production. Otherwise, she is in her [facility]. She just completed dialysis and is suggestion that she is ready to get out of the ICU and go back home. Otherwise, there have been no interval events overnight. She required BiP AP, but she uses this for obstructive sleep apnea, chronically. This morning, I find her awake and a little bit groggy, but mentating just fine. PAST MEDICAL HISTORY: 1. Chronic systolic and diastolic heart failure. 2. Atrial fibrillation, chronic. 3. Type 2 diabetes mellitus. 4. Dyslipidemia. 5. End-stage renal disease. 6. Morbid obesity. 7. Obstructive sleep apnea. 8. Seizure disorder. 9. Chronic hypoxic and hypercapnic respiratory failure. 10. Anemia of chronic kidney disease. PAST SURGICAL HISTORY: 1. Pacemaker placement. 2. Left upper extremity fistula. ALLERGIES: No known drug allergies. MEDICATIONS: List of her inpatient medications were reviewed. No specific updates were made at this time. FAMILY HISTORY: Noncontributory. SOCIAL HISTORY: She lives in a nursing facility currently. She denies any current alcohol, tobacco, or illicit drug use. She has no exposure to chemicals, dust, asbestos, tuberculosis that she is donell re of. REVIEW OF SYSTEMS: General, head, ears, eyes, nose, throat, cardiovascular, respiratory, GI, , mus culoskeletal, neurologic, and skin is negative except as mentioned in the HPI. PHYSICAL EXAMINATION: VITAL SIGNS: Afebrile, pulse 77, respirations 14, saturation 98% on 2 liters nasal cannula. Blood p ressure 178/84. HEENT: Normocephalic, atraumatic. Sclerae are white. Conjunctivae pink. Oral and nasal mucosa is moist without lesions. LUNGS: Decent air entry. There is a minimally prolonged expiratory phase with crackles and wheezing both present. Crackles predominate. HEART: Normal rate, regular. ABDOMEN: Soft, nontender, nondistended. Bowel sounds are positive. MUSCULOSKELETAL: No cyanosis or clubbing. There is no pitting or tenting in the bilateral lower ext remities. NEUROLOGIC: Grossly nonfocal. LABORATORY DATA: WBC 4.3 near baseline, hemoglobin 10.1, platelets 148,000. Neutrophil count falls within the normal limits. Creatinine 3.01. Basic metabolic profile and liver function studies are o therwise unremarkable. Troponin falls within normal limits. BNP is elevated at 2600 and glucose 122 . Hepatitis B surface antigen is nonreactive. IMAGING: Chest x-ray demonstrates bilateral alveolar and interstitial infiltrates. ASSESSMENT: 1. Acute on chronic hypoxic and hypercapnic respiratory failure. 2. End-stage renal disease. 3. Acute on chronic systolic and diastolic heart failure. 4. Obstructive sleep apnea. 5. Obesity. PLAN: We will give the patient a BiPAP break today. IV steroids will be interrupted and we will giv e her a 5-day course of p.o. prednisone. I do think that most of her respiratory issue today is volu me mediated. Pulmonary Critical Care will continue to follow, but Dr. Landry will assume coverage in t morning.
[2017-10-11] MEDS: Nicotine 21 MG PATCH TOP SCH (16:29)
--- NOTE | 2017-10-11 17:36 | PDOC.EVN ---
Event Note - Event Note Event Note: Chart reviewed. Pt seen. No complaints. Will follow.
[2017-10-12] MEDS ORDERED: Cefepime 1 GM in Sodium Chloride 0.9% 100 ML IVPB SCH (03:30)
[2017-10-12] MEDS: Levothyroxine Sodium 100 MCG TAB PO SCH (05:03)
[2017-10-12 05:31] LABS: ALT (SGPT) 17 U/L (8-55); AST (SGOT) 25 U/L (5-34); Albumin 3.8 g/dL (3.5-5.0); Alkaline Phosphatase 69 U/L (40-150); Anion Gap 17 mmol/L (10-20); BUN (Urea Nitrogen) 36 mg/dL (9.8-20.1); Bilirubin, Total 0.6 mg/dL (0.2-1.2); Calc. Creatinine Clearance 24 mL/min (70-130); Carbon Dioxide 26 mmol/L (22-29); Chloride 90 mmol/L (98-107); Estimated GFR-MDRD 13; Globulin 3.6 g/dL (2.4-3.5); Glucose 82 mg/dL (70-105); Magnesium 2.1 mg/dL (1.6-2.6); Protein, Total 7.4 g/dL (6.0-8.3); Sodium 129 mmol/L (136-145)
[2017-10-12 06:05] LABS: Band 29 % (5-11); Hemoglobin 9.4 g/dL (12.0-16.0); Lymphocytes 17 % (21-51); MDiff Complete? YES; Mean Corpuscular HGB CONC 30.5 g/dL (32.0-36.0); Mean Corpuscular Hemoglobin 33.7 pg (27.0-31.0); Mean Platelet Volume 9.7 fL (7.4-10.4); Monocytes 10 % (0-10); Neutrophil 44 % (42-75); Platelet Count 141 thou/uL (130-400); RBC Distribution Width 16.7 % (11.5-14.5); Red Blood Cell (RBC) Count 2.78 mill/uL (4.20-5.40)
[2017-10-12] MEDS: Famotidine/PF 20 mg/2ml Vial SLOW IVP SCH (09:03)
[2017-10-12] MEDS: Gabapentin 300 MG CAP PO SCH (09:04)
[2017-10-12] MEDS: Losartan 25 MG TAB PO SCH (09:04)
[2017-10-12] MEDS: hydrALAZINE 25 MG TAB PO SCH ×3 (09:04→20:34)
[2017-10-12] MEDS: Calcium Acetate 667 MG CAP PO SCH ×3 (09:04→18:10)
[2017-10-12] MEDS: Carvedilol 3.125 MG TAB PO SCH ×2 (09:05→20:34)
[2017-10-12] MEDS: Amiodarone 200 MG TAB PO SCH (09:05)
[2017-10-12] MEDS: predniSONE 20 MG TAB PO SCH (09:05)
--- NOTE | 2017-10-12 09:15 | PRG ---
DATE OF SERVICE: 10/12/2017 SUBJECTIVE: Ms. Felder is a 57-year-old white female with known history of ESRD. The patient was admitted for congestive heart failure. She has now been out of the unit. She is feeling better. S he underwent hemodialysis yesterday. This morning her breathing is much better. She is scheduled fo r a regular Tuesday, Tuesday, Tuesday dialysis. She voices no complaints of chest pain, syncopal epi sode, productive cough, fever or chills. OBJECTIVE: VITAL SIGNS: Blood pressure 137/84, heart rate 72, respiratory rate 22, temperature 98.5, pulse ox 9 5%. GENERAL: Noted to be awake, sitting comfortable, obese, not in distress. SKIN: Adequate turgor. HEENT: She has slightly pale conjunctivae, anicteric sclerae. NECK: No neck mass, no carotid bruits, no JVD. CHEST: No deformities. LUNGS: Decreased breath sounds. HEART: Normal sinus rhythm. No murmur, no gallops, no rubs. ABDOMEN: Globular, soft, nontender, no masses. EXTREMITIES: Trace edema. MEDICATIONS: 10/12/2017 - Reviewed. LABORATORY: 10/12/2017 - White count 7, hemoglobin 9.4, hematocrit 30.7, Sodium 129, potassium 4, ch loride 90, carbon dioxide 26, BUN 36, creatinine 3.63, albumin 3.8, magnesium 2.1, AST 25, ALT 27. ASSESSMENT AND PLAN: 1. Congestive heart failure, clinically much improved with dialysis. We took off several liters of fluid with dialysis yesterday. My plan is to continue her regular dialysis with fluid removal. 2. End-stage renal disease, stable. Tolerating current hemodialysis regimen. My plan is to resume back on Tuesday, Tuesday, Tuesday dialysis regimen. 3. Anemia. We will continue weekly Epogen with this patient. 4. Noncompliance - patient has history of noncompliance. She is being recounseled numerous times re garding attending her dialysis sessions.
--- NOTE | 2017-10-12 12:29 | PDOC.PN ---
- Subjective Encounter Start Date: 10/12/17 Encounter Start Time: 12:27 Pt seen for followupre; acute on chronic respiratory failure. Awake, alert. Denies chest pain or shortness of breath. - Objective Resuscitation Status: Resuscitation Status FULL:Full Resuscitation MAR Reviewed: Yes Vital Signs & Weight: Vital Signs (12 hours) Temp Pulse Resp BP BP Pulse Ox 10/12/17 11:42 97.7 F 64 22 H 127/78 95 10/12/17 10:54 68 18 100 10/12/17 09:04 72 137/84 10/12/17 08:00 98.5 F 72 22 H 137/84 95 10/12/17 07:20 69 16 97 10/12/17 04:00 98.4 F 71 20 134/80 92 L 10/12/17 02:12 95 Weight Weight 196 lb 8 oz I&O: 10/11/17 10/12/17 10/13/17 06:59 06:59 06:59 Intake Total 115 Balance 115 Result Diagrams: 10/12/17 03:43 10/12/17 03:43 Additional Labs: Accuchecks 10/12/17 10/12/17 10/11/17 11:46 05:27 20:13 POC Glucose 136 H 107 114 H 10/11/17 16:59 POC Glucose 218 H Phys Exam - Physical Examination Obese HEENT: moist MMs Neck: supple Bibasal crackles Cardiovascular: irregular Gastrointestinal: soft Neurological: moves all 4 limbs Psychiatric: normal affect Skin: no rash Dx/Plan (1) Acute respiratory failure with hypoxia and hypercarbia Code(s): J96.01 - ACUTE RESPIRATORY FAILURE WITH HYPOXIA; J96.02 - ACUTE RESPIRATORY FAILURE WITH HYPERCAPNIA Status: Acute Comment: resolved (2) Pneumonia Code(s): J18.9 - PNEUMONIA, UNSPECIFIED ORGANISM Status: Acute (3) Volume overload Code(s): E87.70 - FLUID OVERLOAD, UNSPECIFIED Status: Acute (4) Anemia of renal disease Code(s): D63.1 - ANEMIA IN CHRONIC KIDNEY DISEASE Status: Chronic Comment: Stable, no evidence of acute blood loss (5) Anxiety and depression Code(s): F41.9 - ANXIETY DISORDER, UNSPECIFIED; F32.9 - MAJOR DEPRESSIVE DISORDER, SINGLE EPISODE, UNSPECIFIED Status: Chronic (6) Atrial fibrillation Code(s): I48.91 - UNSPECIFIED ATRIAL FIBRILLATION Status: Chronic Qualifiers: (7) Diabetes mellitus type 2 in obese Code(s): E11.9 - TYPE 2 DIABETES MELLITUS WITHOUT COMPLICATIONS; E66.9 - OBESITY , UNSPECIFIED Status: Chronic (8) Dyslipidemia Code(s): E78.5 - HYPERLIPIDEMIA, UNSPECIFIED Status: Chronic (9) ESRD (end stage renal disease) on dialysis Code(s): N18.6 - END STAGE RENAL DISEASE; Z99.2 - DEPENDENCE ON RENAL DIALYSIS Status: Chronic Comment: HD per Renal service - Plan continue antibiotics, PT/OT, out of bed/ambulate * . Continue IV antibiotics as below. Continue steroids. Pt improved after dialysis. Continue accuchecks, insulin sliding scale. Pt not a candidate for anticoagulation due to noncompliance. Dialysis per nephrology service. Review of Systems - Review of Systems Respiratory: negative: Cough, Dry, Shortness of Breath, Hemoptysis, SOB with Excertion, Pleuritic Pain, Sputum, Wheezing Cardiovascular: negative: chest pain, palpitations, orthopnea, paroxysmal nocturnal dyspnea, edema, light headedness Gastrointestinal: negative: Nausea, Vomiting, Abdominal Pain, Diarrhea, Constipation, Melena, Hematochezia - Medications/Allergies Allergies/Adverse Reactions: Allergies Allergy/AdvReac Type Severity Reaction Status Date / Time No Known Allergies Allergy Verified 09/06/17 06:47 Medications: Current Medications Acetaminophen (Tylenol) 650 mg PO Q4H PRN PRN Reason: Headache/Fever or Pain Hydrocodone Bitart/Acetaminophen ([place] 10/325) 1 tab PO Q4H PRN PRN Reason: Severe Pain (7-10) Hydrocodone Bitart/Acetaminophen ([place] 5/325) 1 tab PO Q4H PRN PRN Reason: Moderate Pain (4-6) Albuterol Sulfate (Ventolin) 2.5 mg NEB Q2H PRN PRN Reason: Wheezing Albuterol/Ipratropium (Duoneb) 3 ml NEB [id number] [facility] Last Admin: 10/12/17 10:54 Dose: 3 ml Amiodarone HCl (Cordarone) 200 mg PO DAILY [facility] Last Admin: 10/12/17 09:05 Dose: 200 mg Aspirin (Aspirin Chewable) 81 mg PO DAILY [facility] Last Admin: 10/12/17 09:05 Dose: 81 mg Calcium Acetate (Phoslo) 1,334 mg PO TID-[facility] Last Admin: 10/12/17 09:04 Dose: 1,334 mg Carvedilol (Coreg) 3.125 mg PO BID [facility] Last Admin: 10/12/17 09:05 Dose: 3.125 mg Cefdinir (Omnicef) 300 mg PO DAILY [facility] Stop: 10/18/17 09:01 Dextrose/Water (Dextrose 50%) 25 gm SLOW IVP PRN PRN PRN Reason: Hypoglycemia Epoetin Hermes (Procrit) 7,500 units SC Q7D [facility] Last Admin: 10/11/17 16:28 Dose: 7,500 units Famotidine (Pepcid) 20 mg SLOW IVP DAILY [facility] Last Admin: 10/12/17 09:03 Dose: 20 mg Gabapentin (Neurontin) 300 mg PO DAILY [facility] Last Admin: 10/12/17 09:04 Dose: 300 mg Glucagon (Glucagon) 1 mg IM PRN PRN PRN Reason: Hypoglycemia Hydralazine HCl (Apresoline) 25 mg PO TID [facility] Last Admin: 10/12/17 09:04 Dose: 25 mg Dextrose/Water (D5w) 1,000 mls @ 0 mls/hr IV .Q0M PRN; As Directed PRN Reason: Hypoglycemia Insulin Human Lispro (Humalog) 0 units SC .MODERATE SLIDING SC PRN PRN Reason: Moderate Correctional Scale Isosorbide Mononitrate (Imdur Er) 30 mg PO DAILY [facility] Last Admin: 10/12/17 09:04 Dose: 30 mg Levothyroxine Sodium (Synthroid) 100 mcg PO 0600 [facility] Last Admin: 10/12/17 05:03 Dose: 100 mcg Losartan Potassium (Cozaar) 25 mg PO DAILY [facility] Last Admin: 10/12/17 09:04 Dose: 25 mg Nicotine (Nicoderm Patch) 21 mg TOP Q24HR [facility] Last Admin: 10/11/17 16:29 Dose: Not Given Ondansetron HCl (Zofran) 4 mg IVP Q6H PRN PRN Reason: Nausea/Vomiting Pantoprazole Sodium (Protonix) 40 mg PO BID [facility] Last Admin: 10/12/17 09:05 Dose: 40 mg Prednisone (Prednisone) 40 mg PO QA-[facility] Stop: 10/14/17 08:01 Last Admin: 10/12/17 09:05 Dose: 40 mg Sertraline HCl (Zoloft) 150 mg PO DAILY [facility] Last Admin: 10/12/17 09:04 Dose: 150 mg
--- NOTE | 2017-10-12 17:10 | PRG ---
DATE OF SERVICE: 10/12/2017 SUBJECTIVE: This morning she says she is better. She is less short of breath. Nephrology saw her, she was dialyzed. Fluid overload, much improved. She denies any coughing or wheezing. She still states she is smoking from time to time. OBJECTIVE: VITAL SIGNS: Sats are 93-95%, pulse 70, blood pressure 130/80. CHEST: Revealed bilateral rhonchi and crackles. CARDIAC: Normal S1, S2. No gallops. ABDOMEN: Soft. No masses. LABORATORY: White count 7000, H and H 9 and 30, platelet count 141. X-ray shows CHF. IMPRESSION: 1. Respiratory failure, chronic obstructive pulmonary disease exacerbation, fluid overload, congesti ve heart failure. 2. Severe noncompliance. 3. Morbid obesity. 4. Tobacco abuse. PLAN: Nephrology feels she can be discharged home on dialysis. This can be accomplished. She is obviously told to refrain from smoking. Switch over to oral antibiotics, neb treatments, supp ortive care.
[2017-10-12] MEDS: Nicotine 21 MG PATCH TOP SCH (18:10)
[2017-10-13] MEDS: Levothyroxine Sodium 100 MCG TAB PO SCH (05:12)
[2017-10-13 08:21] VITALS: TEMP 98.2
[2017-10-13] MEDS: Gabapentin 300 MG CAP PO SCH (08:31)
[2017-10-13] MEDS: Famotidine/PF 20 mg/2ml Vial SLOW IVP SCH (08:31)
[2017-10-13] MEDS: Losartan 25 MG TAB PO SCH (08:32)
[2017-10-13] MEDS: Calcium Acetate 667 MG CAP PO SCH ×2 (08:32→12:56)
[2017-10-13] MEDS: Amiodarone 200 MG TAB PO SCH (08:32)
[2017-10-13] MEDS: hydrALAZINE 25 MG TAB PO SCH ×2 (08:33→14:36)
[2017-10-13] MEDS: predniSONE 20 MG TAB PO SCH (08:33)
[2017-10-13] MEDS: Carvedilol 3.125 MG TAB PO SCH (08:33)
[2017-10-13] MEDS ORDERED: Cefdinir 300 MG CAP PO SCH (09:00)
--- NOTE | 2017-10-13 09:19 | PRG ---
DATE OF SERVICE: 10/13/2017 Ms. Felder is a 57-year-old female with ESRD - on maintenance hemodialysis, admitted for respiratory distress. This was secondary to her congestive heart failure. She received several days of dialysis with clinical improvement. This morning she is feeling better. She denies any chest pa in or shortness of breath. PHYSICAL EXAMINATION: VITAL SIGNS: Blood pressure 153/86, heart rate 76, respiratory rate 22, temperature 98.2, pulse ox 9 5%. GENERAL: Awake, alert, comfortable, not in distress. SKIN: Adequate turgor. HEENT: Slightly pale conjunctivae, anicteric sclerae. NECK: No neck mass, no carotid bruits, no JVD. CHEST: No deformities. LUNGS: Bibasilar crackles, no wheezing, no crackles. HEART: Normal sinus rhythm. No murmur, no gallops or rubs. ABDOMEN: Globular, soft, nontender. No masses. EXTREMITIES: No edema, no deformities. MEDICATIONS: 10/13/2017 - Reviewed. LABORATORY: 10/12/2017 - White count 7, hemoglobin 9.4, sodium 129, potassium 4, chloride 90, carbon dioxide 26, BUN 36, creatinine 3.63. 10/13/2017 - Glucose 99. ASSESSMENT AND PLAN: 1. End-stage renal disease, stable. Tolerating current Tuesday, Tuesday, Tuesday dialysis. Again, fluid removal as tolerated by the patient. I did recounsel the patient regarding compliance with her dialysis treatment. Again, she tells me she will comply with the dialysis regimen. 2. Congestive heart failure secondary to volume overload, clinically much improved. Continue curren t dialysis regimen and fluid removal. 3. Anemia. Continuing current weekly Epogen with this patient. From renal point of view this patient can be discharged any time.
--- NOTE | 2017-10-13 09:36 | PRG ---
DATE OF SERVICE: 10/13/2017 She is better this morning, less cough, less shortness of breath. She is eager to go home. PHYSICAL EXAMINATION: VITAL SIGNS: Blood pressure 153/86, sats 95, pulse 76, temperature 98. CHEST: Chest reveals decreased breath sounds, no wheezing. CARDIAC: Normal S1-S2. No gallops. ABDOMEN: Soft, no masses. IMPRESSION: 1. Chronic obstructive pulmonary disease exacerbation, stable. 2. Diabetes. 3. Severe deconditioning. 4. Renal failure. PLAN: From a pulmonary standpoint of view she is much improved. She can be discharged home and foll ow up with her primary care physician.
--- NOTE | 2017-10-13 10:49 | PDOC.PN ---
- Subjective Encounter Start Date: 10/13/17 Encounter Start Time: 11:15 Subjective: Patient feeling much better. No SOB. Continued cough. - Objective Resuscitation Status: Resuscitation Status FULL:Full Resuscitation MAR Reviewed: Yes Vital Signs & Weight: Vital Signs (12 hours) Temp Pulse Resp BP BP Pulse Ox 10/13/17 08:33 76 153/86 H 10/13/17 08:00 98.2 F 76 22 H 153/86 H 95 10/13/17 07:27 68 16 95 10/13/17 01:36 95 Weight Weight 196 lb 8 oz I&O: 10/12/17 10/13/17 10/14/17 06:59 06:59 06:59 Intake Total 1270 Balance 1270 Result Diagrams: 10/12/17 03:43 10/12/17 03:43 Additional Labs: Accuchecks 10/13/17 10/12/17 10/12/17 05:04 20:42 18:09 POC Glucose 99 167 H 165 H 10/12/17 11:46 POC Glucose 136 H Phys Exam - Physical Examination Constitutional: NAD HEENT: moist MMs Respiratory: no wheezing, no rales, no rhonchi, clear to auscultation bilateral Cardiovascular: no significant murmur, irregular Gastrointestinal: soft Neurological: non-focal, moves all 4 limbs Psychiatric: normal affect, A&O x 3 Dx/Plan (1) Acute respiratory failure with hypoxia and hypercarbia Code(s): J96.01 - ACUTE RESPIRATORY FAILURE WITH HYPOXIA; J96.02 - ACUTE RESPIRATORY FAILURE WITH HYPERCAPNIA Status: Resolved Comment: resolved (2) Volume overload Code(s): E87.70 - FLUID OVERLOAD, UNSPECIFIED Status: Acute (3) Anemia of renal disease Code(s): D63.1 - ANEMIA IN CHRONIC KIDNEY DISEASE Status: Chronic Comment: Stable, no evidence of acute blood loss (4) Atrial fibrillation Code(s): I48.91 - UNSPECIFIED ATRIAL FIBRILLATION Status: Chronic Qualifiers: (5) Chronic systolic (congestive) heart failure Code(s): I50.22 - CHRONIC SYSTOLIC (CONGESTIVE) HEART FAILURE Status: Chronic Comment: acute on chronic (6) Diabetes mellitus type 2 in obese Code(s): E11.9 - TYPE 2 DIABETES MELLITUS WITHOUT COMPLICATIONS; E66.9 - OBESITY , UNSPECIFIED Status: Chronic (7) ESRD (end stage renal disease) on dialysis Code(s): N18.6 - END STAGE RENAL DISEASE; Z99.2 - DEPENDENCE ON RENAL DIALYSIS Status: Chronic Comment: HD per Renal service - Plan cont current plan of care ok to d/c back to rehab today * . - Discharge Day Encounter end time: 11:30
--- NOTE | 2017-10-13 13:07 | DIS ---
PRIMARY CARE PHYSICIAN: Dr. Simona Barnard. DIAGNOSES ON ADMISSION: 1. Acute on chronic combined hypercapnic-hypoxic respiratory failure. 2. Chronic atrial fibrillation. 3. End-stage renal disease, on dialysis. 4. Diabetes mellitus, type 2. 5. Hyperlipidemia. 6. Anemia of renal disease. DIAGNOSES AT DISCHARGE: 1. Acute on chronic hypercapnic-hypoxic respiratory failure, resolved. 2. Volume overload, resolved. 3. End-stage renal disease, on dialysis. 4. Anemia of renal disease, stable. 5. Atrial fibrillation, chronic. 6. Chronic systolic congestive heart failure. 7. Diabetes mellitus, type 2. PROCEDURES: None. CONSULTATIONS: 1. Nephrology, Dr. Jacobson. 2. Pulmonology, Dr. Monson. SUMMARY OF HOSPITAL COURSE: This is a 57-year-old female, well known from multiple recent a dmissions, who is not always compliant with her dialysis. She did not complete a full dialysis the d ay of presentation, came with shortness of breath. After arrival in the ER, she became more obtunded and altered and placed on BiPAP. Dr. Monson and Dr. Jacobson were consulted. Patient had emergency pooja lysis. After dialysis, over several days, all of her symptoms resolved. Her breathing came back to normal. She was able to be weaned off of all respiratory support and oxygen. She was doing well the day of discharge. DISCHARGE MANAGEMENT: Discharge back to rehabilitation. ACTIVITY: As tolerated. DIET: Diabetic, fluid restricted, low sodium diet. DISCHARGE MEDICATIONS: 1. Cefdinir 300 mg twice a day for another 5 days. 2. Prednisone 20 mg daily for another 5 days. 3. Tessalon Perles 200 mg 3 times a day as needed for cough and resume all home medications. 4. Carvedilol 3.125 mg twice a day. 5. Acetaminophen as needed. 6. Ranitidine 75 mg twice a day as needed. 7. Zofran 8 mg as needed. 8. Imodium as needed. 9. Hydralazine 25 mg 3 times a day. 10. PhosLo 1334 mg 3 times a day. 11. Clonidine 0.1 mg twice a day. 12. Vitamin D3 50,000 units every 7 days. 13. Sertraline 150 mg daily. 14. Losartan 25 mg daily. 15. Isosorbide mononitrate 30 mg daily. 16. Neurontin 300 mg daily. 17. Feosol 325 mg daily. 18. Aspirin 81 mg daily. 19. Amiodarone 200 mg daily. 20. Trazodone 100 mg at night. 21. Niacin 1000 mg at night. 22. Toyin-David 1 tablet daily. 23. Protonix 20 mg twice a day. 24. Pro-Stat 30 mL twice a day. 25. Guaifenesin as needed. 26. Claritin 10 mg daily. 27. Nitrostat 0.4 mg sublingual as needed. 28. DuoNeb every 4 hours as needed. 29. Zantac 150 mg daily. 30. Acetaminophen with codeine as needed. 31. Levothyroxine 100 mcg daily.
[2017-10-13 14:39] VITALS: BP 136/80
[2017-10-14] MEDS ORDERED: Famotidine 20 MG TAB PO SCH (09:00)
--- NOTE | 2017-10-15 17:49 | EKG ---
Test Reason : Blood Pressure : / mmHG Vent. Rate : 075 BPM Atrial Rate : 075 BPM P-R Int : 202 ms QRS Dur : 146 ms QT Int : 420 ms P-R-T Axes : 041 -32 102 degrees QTc Int : 469 ms Normal sinus rhythm Left axis deviation Non-specific intra-ventricular conduction block Possible Lateral infarct , age undetermined Abnormal ECG Confirmed by RADHA TATE D.O. ([id number]), society editor CECILY MARTÍNEZ ([id number]) on 10/15/2017 5:48:16 PM Referred By: Confirmed By:RADHA TATE D.O.
--- NOTE | 2017-10-18 08:53 | PQF ---
Please direct this query to the physician who discharged this patient. Thanks. ALICIARODY HELENE FERNANDO ARIAS [id number] CLINICAL DOCUMENTATION CLARIFICATION FORM: POST DISCHARGE Addendum to original discharge summary date: ____ Late entry note date: __ ALICIARODY HELENE [id number] COURTNEY BRADLEY PLEASE DOCUMENT YOUR RESPONSE BELOW PLEASE FAX RESPONSE BACK TO YOUR INPUT IS NEEDED TO CORRECTLY CODE A DIAGNOSIS FOR YOUR PATIENT. DATE: 10/18/2017 ATTN: DR. ARIAS Please exercise your independent, professional judgment in responding to the clarification form. Clinical indicators are provided on the bottom of this form for your review Please check appropriate box(s) to clarify if the following diagnosis has been ruled in our ruled out: PNEUMONIA (CDI/ Coding list diagnosis here) [ ] Ruled in diagnosis [ ] Continue to treat [ ] Resolved [ ] Ruled out diagnosis [ ] Cannot rule out diagnosis [ ] Other diagnosis [ ] Unable to determine In addition, please specify: Present on Admission (POA): [ ] Yes [ ] No [ ] Unable to determine For continuity of documentation, please document condition throughout progress notes and discharge summary. Thank You. CLINICAL INDICATORS - SIGNS / SYMPTOMS / LABS: ER: SOB VITALS: TEMP: 98, PULSE: 74, RR: 20, BP 156/86 PLACED ON BIPAP H&P: A/C RESPIRATORY FAILURE HYPERCAPNIC, AND HYPOXIC COVER FOR [facility]ARE [facility] PNEUMONIA 10/12 PN - PNEUMONIA CONTINUE IV ANTIBIOTICS DS - A/C COMBINED HYPERCAPNIC-HYPOXIC RESPIRATORY FAILURE RISK FACTORS: RESPIRATORY FAILURE COPD TREATMENTS: CEFEPIME, LEVOFLOXACIN BIPAP (This form is maintained as a part of the permanent medical record) 2014 [employer], [employer]. All Rights Reserved Kathy Marques CCS, [facility]- [email or web address] [phone] MTDD
== END 2017-10-13 16:07 | DRG 189 ==
LOC: ERS 01:35 → IMCU/EMU 03:25 → T4-B 17:33
PROVIDERS: ADMIT Internal Medicine Infectious Disease; ATTEND Internal Medicine Infectious Disease
PROC: 5A1D70Z Performance of Urinary Filtration, Intermittent, Less than 6 Hours Per Day (ICD-10-PCS; principal; 2017-10-11)
PROC: 5A09457 Assistance with Respiratory Ventilation, 24-96 Consecutive Hours, Continuous Positive Airway Pressure (ICD-10-PCS; 2017-10-11)
PROC: 5A1D70Z Performance of Urinary Filtration, Intermittent, Less than 6 Hours Per Day (ICD-10-PCS; 2017-10-11)
PROC: 5A1D70Z Performance of Urinary Filtration, Intermittent, Less than 6 Hours Per Day (ICD-10-PCS; 2017-10-12)
DX: J96.21 Acute and chronic respiratory failure with hypoxia (principal); J18.9 Pneumonia, unspecified organism; E11.21 Type 2 diabetes mellitus with diabetic nephropathy; N18.6 End stage renal disease; I48.2 Chronic atrial fibrillation; E66.01 Morbid (severe) obesity due to excess calories; I50.22 Chronic systolic (congestive) heart failure; J44.1 Chronic obstructive pulmonary disease with (acute) exacerbation; J44.0 Chronic obstructive pulmonary disease with (acute) lower respiratory infection; G40.909 Epilepsy, unspecified, not intractable, without status epilepticus; E11.22 Type 2 diabetes mellitus with diabetic chronic kidney disease; D63.1 Anemia in chronic kidney disease; E78.5 Hyperlipidemia, unspecified; J96.22 Acute and chronic respiratory failure with hypercapnia; Z79.82 Long term (current) use of aspirin; Z99.2 Dependence on renal dialysis; Z95.810 Presence of automatic (implantable) cardiac defibrillator; F17.210 Nicotine dependence, cigarettes, uncomplicated; Z91.19 Patient's noncompliance with other medical treatment and regimen; G47.33 Obstructive sleep apnea (adult) (pediatric); K21.9 Gastro-esophageal reflux disease without esophagitis; F32.9 Major depressive disorder, single episode, unspecified; F41.9 Anxiety disorder, unspecified; Z68.35 Body mass index [BMI] 35.0-35.9, adult
CPT/HCPCS: 36415; 36416; 71045; 80053; 82553; 83735; 83880; 84100; 84484; 85025; 87340; 90935; 93005; 94640; 94660; 96365; 96374; 96375; G0257; G8978-GP-CM; G8979-GP-CK; G8987-GO-CI; G8988-GO-CI; G8989-GO-CI; J0692; J1956; J2930; J3370; J7050; J7506; J7620; Q4081; S0028

== ENCOUNTER 2017-12-14 10:21 | Emergency (ER) | payer MEDICARE, OTHER ==
--- NOTE | 2017-12-14 11:12 | RAD ---
AP VIEW CHEST: INDICATIONS: Weakness after dialysis. COMPARISON: 10/11/2017 FINDINGS: There is cardiomegaly, pulmonary vascular congestion, and diffuse interstitial opacities that appear similar to the prior exam. There is mild blunting of the costophrenic angles. No pneumothorax is ev ident. AICD is similar. IMPRESSION: Findings suggesting either mild volume overload or congestive heart failure. POS: [facility]
[2017-12-14 11:34] LABS: #Basophils 0.1 thou/uL (0.0-0.2); #Lymphocytes 0.7 thou/uL (1.20-3.40); #Monocytes 0.6 thou/uL (0.11-0.59); #Neutrophils 3.7 thou/uL (1.40-6.50); %Eosinophils 0.3 % (0.0-10.0); %Lymphocytes 13.7 % (21.0-51.0); %Monocytes 11.5 % (0.0-10.0); %Neutrophils 73.5 % (42.0-75.0); Hemoglobin 9.5 g/dL (12.0-16.0); Mean Corpuscular HGB CONC 30.3 g/dL (32.0-36.0); Mean Corpuscular Hemoglobin 34.3 pg (27.0-31.0); Mean Platelet Volume 9.2 fL (7.4-10.4); Platelet Count 130 thou/uL (130-400); RBC Distribution Width 16.1 % (11.5-14.5); Red Blood Cell (RBC) Count 2.78 mill/uL (4.20-5.40); White Blood Cell (WBC) Count 5.1 thou/uL (4.8-10.8)
[2017-12-14 11:47] LABS: Hypochromia SLIGHT = 6-15 cells (100X) (0-5/hpf); MDiff Complete? YES; Macrocytosis SLIGHT = 6-15 cells (100X) (0-5/hpf); PLT Morphology Comment Appears Adequate
[2017-12-14 11:58] LABS: ALT (SGPT) 8 U/L (8-55); AST (SGOT) 7 U/L (5-34); Albumin 3.8 g/dL (3.5-5.0); Alkaline Phosphatase 51 U/L (40-150); Anion Gap 13 mmol/L (10-20); BUN (Urea Nitrogen) 43 mg/dL (9.8-20.1); Bilirubin, Total 0.6 mg/dL (0.2-1.2); CK (CPK) 28 U/L (29-168); Calc. Creatinine Clearance 0 mL/min (70-130); Calcium 8.8 mg/dL (7.8-10.44); Carbon Dioxide 30 mmol/L (22-29); Chloride 88 mmol/L (98-107); Estimated GFR-MDRD 10; Globulin 2.8 g/dL (2.4-3.5); Glucose 151 mg/dL (70-105); Lipase Less than 4 U/L (8-78); Potassium 4.9 mmol/L (3.5-5.1); Protein, Total 6.6 g/dL (6.0-8.3); Sodium 126 mmol/L (136-145)
[2017-12-14 12:00] LABS: CKMB 1.4 ng/mL (0-6.6); Troponin I 0.012 ng/mL (< 0.028)
== END 2017-12-14 16:20 | disposition home or self-care (01) ==
LOC: ERS 10:21
DX: E11.22 Type 2 diabetes mellitus with diabetic chronic kidney disease (principal); N18.6 End stage renal disease; I50.9 Heart failure, unspecified; I48.91 Unspecified atrial fibrillation; D64.9 Anemia, unspecified; E66.9 Obesity, unspecified; E87.70 Fluid overload, unspecified; E78.1 Pure hyperglyceridemia; G40.909 Epilepsy, unspecified, not intractable, without status epilepticus; E78.5 Hyperlipidemia, unspecified; F32.9 Major depressive disorder, single episode, unspecified; F41.9 Anxiety disorder, unspecified; Z79.891 Long term (current) use of opiate analgesic; Z99.2 Dependence on renal dialysis
CPT/HCPCS: 71045; 80053; 82553; 83690; 83735; 84484; 85025; 93005